=== PATIENT | female | born 1990 | race Caucasian/White ===

== ENCOUNTER → 2017-06-30 16:12 | Observation (INO) ==
[2017-06-30 14:20] LABS: Bilirubin,Urine Negative (Negative); Blood,Urine Trace (Negative); Clarity,Urine Cloudy (Clear); Color,Urine Yellow (Yellow); Glucose,Urine (UA) Normal (Normal); Ketones,Urine Trace mg/dL (Negative); Leukocyte Esterase,Urine Negative (Negative); Nitrite,Urine Negative (Negative); Protein,Urine Negative (Neg-Trace); Specific Gravity,Urine 1.025 (1.010-1.025); Urobilinogen,Urine Normal (Normal)
[2017-06-30 14:23] LABS: Bacteria,Urine Moderate per hpf (None-Few); Hyaline Casts,Urine None Seen per lpf (None-Few); Squamous Epithelial Cell,Urine Many per lpf (None-Few)
[2017-06-30 14:34] LABS: RBC,Urine 0-3 per hpf (0-3)
[2017-06-30 14:38] LABS: Amphetamine Screen,Urine Negative ng/mL (Cutoff=1000); Barbiturate Screen,Urine Negative ng/mL (Cutoff=200); Benzodiazepines Screen,Urine Negative ng/mL (Cutoff=200); Cannabinoid Screen,Urine Negative ng/mL (Cutoff = 50); Cocaine Screen,Urine Negative ng/mL (Cutoff= 300); Opiate Screen,Urine Negative ng/mL (Cutoff=300); Phencyclidine Screen,Urine Negative ng/mL (Cutoff=25)
--- NOTE | 2017-06-30 15:00 | OB/GYN Progress Note ---
Date of Encounter: 06/30/17 Time of Encounter: 14:57 - Assessment and Plan (1) 22 weeks gestation of Current Visit: Yes Status: Acute The patient receives care with Dr. Ramos (2) Pelvic pressure in Current Visit: Yes Status: Acute No evidence of labor. No contractions on monitoring. Presenting part high. Urinalysis not flagged for culture. Pelvic rest until symptoms resolve (3) Acute vaginitis Current Visit: Yes Status: Acute Vaginosis panel obtained and treatment will be indicated as per results. Patient is to continue her care as scheduled. Subjective - Subjective Principal diagnosis: 22 weeks Interval history: The patient is a 26-year-old at 22 weeks estimated gestational age with an EDC of 11/03/17 who presents to labor and delivery with complaints of pelvic pressure and cramps since yesterday with some mucousy discharge and onset of dysuria this morning. She reports she saw blood spots within the discharge first thing this morning but that has resolved. She reports an active fetus. She denies any loss of fluid. She reports intercourse 2 days ago. She has no history of delivery and she has no complications with this . Antepartum ROS: new complaints, movement normal, other (Cramping, pelvic pressure with dysuria and vaginal discharge) Objective - Vital Signs Vital Signs: Intake and Output 06/29/17 06/30/17 06/30/17 23:59 07:59 15:59 Other: Weight 78.8 kg Patient Weight 06/30/17 23:59 Weight 78.8 kg - Exam FHR: auscultation normal FHR comments: 150s Auscultation: bilateral: normal Abdomen: Present: normal appearance, soft, gravid. Absent: distention, tenderness Cervical dilation: Visualized to be closed and thick station: High Comments: There is a small amount of mucousy discharge without any blood seen. Vaginosis panel obtained. No erythema or lesions noted within the vaginal vault or on the cervix - Labs Labs: Abnormal lab results Urine Clarity Cloudy (Clear) A 06/30/17 13:54 Urine Ketones Trace mg/dL (Negative) H 06/30/17 13:54 Urine Blood Trace (Negative) H 06/30/17 13:54 Urine Microscopic WBC 3-5 per hpf (0-3) H 06/30/17 13:54 Ur Squamous Epith Cells Many per lpf (None-Few) H 06/30/17 13:54 Urine Bacteria Moderate per hpf (None-Few) H 06/30/17 13:54 - Allied health notes Allied health notes reviewed: nursing
[2017-06-30 15:54] LABS: Candida DNA Not Detected (Not Detect); Gardnerella DNA Not Detected (Not Detect); Trichomonas DNA Not Detected (Not Detect)
== END | disposition home or self-care (01) ==
LOC: 1NENULAB
PROVIDERS: ADMIT Obstetrics & Gynecology; ATTEND Obstetrics & Gynecology

== ENCOUNTER 2017-07-26 14:13 | Observation (INO) ==
--- NOTE | 2017-07-26 12:52 | OB/GYN Progress Note ---
Date of Encounter: 07/26/17 Time of Encounter: 12:48 - Assessment and Plan (1) 25 weeks gestation of Current Visit: Yes Status: Acute (2) with flank pain, antepartum Current Visit: Yes Status: Acute Patient presents to L&D for right flank pain, pain with urination and a burning feeling in her vaginal. Was seen in the office on 07/23/17 for similar symptoms and was treated with keflex. Urine culture has resulted showing no growth. UA- Trace leukocyte esterase and moderate bacteria Retroperitoneal ultrasound- Mild distension of each renal collecting system believed related to the patient's late mid term . Otherwise normal ultrasound of the kidneys and urinary bladder. No evidence of internal kidney stone. UDS-Negative Monitoring appropriate for gestational age Reviewed US and labs with Dr. Jackson. Discharge home, continue keflex. Discussed with patient need to continue current antibiotic, s/s of pyelo and when to return to triage. Pt verbalizes understanding. Subjective - Subjective Interval history: Patient is a 26 year old female at 25w5d presents to L&D for pain with urination and vaginal burning. She states that she was seen in the office for this and was given keflex. She states that the symptoms have not improved and is now having flank pain on the right. Patient denies any loss of fluid or vaginal bleed but states she has had some yellowish vaginal discharge when she wipes. Patient denies contractions. reports good movement. Denies complications with this . Antepartum ROS: new complaints (Pain with urination and vaginal burning. ), movement normal, no loss of fluid, no vaginal bleeding, no contractions Objective - Vital Signs Vital Signs: Intake and Output 07/25/17 07/26/17 07/26/17 23:59 07:59 15:59 Other: Weight 81 kg Patient Weight 07/26/17 23:59 Weight 81 kg - Exam FHR: category 1 Auscultation: bilateral: normal Abdomen: Present: normal appearance, soft, gravid
[2017-07-26 13:10] VITALS: BP 112/71
[2017-07-26 13:32] LABS: Bilirubin,Urine Negative (Negative); Blood,Urine Negative (Negative); Clarity,Urine Cloudy (Clear); Color,Urine Yellow (Yellow); Glucose,Urine (UA) Normal (Normal); Ketones,Urine Negative (Negative); Leukocyte Esterase,Urine Trace (Negative); Nitrite,Urine Negative (Negative); PH,Urine 6.5 pH Units (5.0-8.0); Protein,Urine Negative (Neg-Trace); Specific Gravity,Urine 1.011 (1.010-1.025); Urobilinogen,Urine Normal (Normal)
[2017-07-26 13:34] LABS: Bacteria,Urine Moderate per hpf (None-Few); Hyaline Casts,Urine None Seen per lpf (None-Few); Squamous Epithelial Cell,Urine Many per lpf (None-Few)
[2017-07-26 13:38] LABS: Amphetamine Screen,Urine Negative ng/mL (Cutoff=1000); Barbiturate Screen,Urine Negative ng/mL (Cutoff=200); Benzodiazepines Screen,Urine Negative ng/mL (Cutoff=200); Cannabinoid Screen,Urine Negative ng/mL (Cutoff = 50); Cocaine Screen,Urine Negative ng/mL (Cutoff= 300); Opiate Screen,Urine Negative ng/mL (Cutoff=300); Phencyclidine Screen,Urine Negative ng/mL (Cutoff=25)
[2017-07-26 13:44] LABS: RBC,Urine 0-3 per hpf (0-3)
== END 2017-07-26 16:58 | disposition home or self-care (01) ==
LOC: 1NENULAB
PROVIDERS: ADMIT Obstetrics & Gynecology; ATTEND Obstetrics & Gynecology

== ENCOUNTER 2017-10-30 03:30 | Inpatient (IN) ==
--- NOTE | 2017-10-30 08:40 | OB/GYN History & Physical ---
Date of Encounter: 10/30/17 Time of Encounter: 08:30 Assessment and Plan (1) 39 weeks gestation of Current visit: Yes Status: Acute Patient receives appropriate care with Dr. Ramos Admitted for induction of labor Cytotec by mouth for induction/[place] balloon placement Epidural if requested Anticipate vaginal delivery (2) NST (non-stress test) reactive on surveillance Current visit: Yes Status: Acute Baseline 135bpm moderate variability Category I Contractions: Irritability Continue to monitor FHT (3) Small for gestational age fetus affecting mother, antepartum Current visit: Yes Status: Acute Qualifiers: Qualified Code(s): O36.5990 - Maternal care for other known or suspected poor growth, unspecified trimester, not applicable or unspecified History of Present Illness Chief complaint: Induction HPI: Ms. Malcolm is a 26 year old female 002 at 39 weeks +3 days who presents to labor and delivery for induction of labor. Patient follows with Dr. Ramos for care. Reports active movement. Denies leakage of fluid, feeling contractions, or vaginal bleeding. was complicated by small for gestational age on third trimester, Cynthia albicans infection, decreased movements and third trimester. Patient was last seen outpatient on , and scheduled for induction by Dr. Ramos on 10/25/17 for today. Patient denies headaches, vision disturbances, fevers/chills/nausea/vomiting/diarrhea. Denies chest pain, shortness of breath, dysuria. Blood type: O+ GBS: Negative Hep B: Nonreactive HIV Ig: Nonreactive T. Pallidum: Negative Rubella IgG: Positive Varicella IgG: Positive Past Med Surg Social Fam HX - Past Medical History Medical history: other Psychiatric history: anxiety, depression - Past Surgical History Surgical History: no surgical history - Social History Smoking Status: Current every day smoker Smokeless Tobacco Status: No Alcohol use: none Drug use: none - Family History Mother Living Status: Still Living Hx Family Cardiac Disorders: Yes (HYPERTENSION) Hx Family Respiratory Disorders: No Hx Family Cancer: No Hx Family GI Disorders: No Hx Family Endocrine Disorder: No Hx Family Neuromuscular Disorders: No Hx Family Neurologic Disorders: No Hx Family HEENT Disorders: No Hx Family Autoimmune Disorders: No Obstetrical History - Pregnancies : 3 Para: 2 Medications and Allergies Vit Calc,Iron,Folic [ Vitamins] 1 tab PO DAILY 06/30/17 [ History] Cephalexin [Keflex] 500 mg PO BID 07/26/17 [History] Promethazine [Phenergan] 12.5 mg PO Q6HR 07/26/17 [History] Oseltamivir [Tamiflu] 75 mg PO DAILY #10 capsule 10/10/17 [Rx] 3 Allergy/AdvReac Type Severity Reaction Status Date / Time No Known Allergies Allergy Verified 10/10/17 09:34 Review of System OB - Constitutional Constitutional ROS IM: as per HPI - Cardiovascular Cardiovascular: as per HPI - Respiratory Respiratory: as per HPI - Gastrointestinal Gastrointestinal: as per HPI - Genitourinary Genitourinary: as per HPI Exam - Constitutional Constitutional: well developed, well nourished, no acute distress, average body habitus - HEENT HEENT: Normocephaly, Mucus Membranes Moist - Neck Neck exam: full ROM - Lungs Respiratory exam: CTAB - Cardiovascular Cardiovascular exam: RRR, +S1, +S2 - Abdomen Abdomen: Present: bowel sounds normal - Extremities Extremities exam: warm, radial pulses palpable and symmetrical Deep Tendon Reflex Grade: 2+ Normal Results All other labs normal.
[2017-10-30] MEDS ORDERED: Famotidine 20 MG/2 ML VIAL IVP PRN (09:26)
[2017-10-30] MEDS ORDERED: Naloxone 0.4 MG/ML INJ IVP PRN ×2 (09:26→14:29)
[2017-10-30] MEDS ORDERED: Ondansetron 4 MG/2 ML VIAL IVP PRN ×2 (09:26→14:29)
[2017-10-30] MEDS ORDERED: Metoclopramide 10 MG/2 ML VIAL IVP PRN (09:26)
[2017-10-30] MEDS ORDERED: miSOPROStol 25 MCG TABLET PO ONE (10:03)
--- NOTE | 2017-10-30 10:12 | Anesthesia Evaluation PreOp ---
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[employer] History: Other (chronic migraines) Other Medical History: Denies Any Significant HX, GERD Anesthesia History: No Prior Anesthetic Complications, Past Anesthesia ([place] teeth, epidural x 2) : Yes Alcohol Use: none Drug use: none Medications and Allergies Vit Calc,Iron,Folic [ Vitamins] 1 tab PO DAILY 06/30/17 [ History] 3 Allergy/AdvReac Type Severity Reaction Status Date / Time No Known Allergies Allergy Verified 10/10/17 09:34 - Meds/Allergy Pre-op Review Medications Reviewed: Yes Allergies Reviewed: No Beta Blockers on Current Med List: No Anesthesia Exam BP 116/74 P 102 R 16 T 97.5 Height: 5'2" Weight: 84.3kg NPO (# of Hours): 4hrs Pain Scale: 0 Pain Scale Used: Numeric (1 - 10) - HEENT Pupil (Motor): Pupils equal Mallampati: II Teeth: Normal Oral Opening: Greater than 3 - MANAGER [employer] LOC: Oriented MANAGER [employer] Motor: Normal RUE, Normal LUE, Normal RLE, Normal LLE, Normal Face [employer]NAGER [employer] Sensory: Normal: RUE, LUE, RLE, LLE, Face - Cardiac Rhythm: Regular Murmur: None JVD: No Carotid Bruit: No - Pulmonary Breath Sounds: bilateral Clear Respiratory Effort: Symmetrical Anesthesia Assess/Plan ASA Score: 2 Modified Citlaly Scale for Level of Consciousness: Cooperative, oriented, and tranquil Anesthetic Plan: Regional Autologous Blood: No Monitoring Plan: Standard Monitors Recovery Plan: Other
[2017-10-30 10:21] LABS: Basophils % 0.2 %; Eosinophils # 0.2 K/mcL (0.0-0.6); Eosinophils % 0.9 %; Hematocrit 34.1 % (35.3-44.9); Hemoglobin 11.2 g/dL (11.5-15.4); Immature Granulocytes % 0.5 % (0-4); Lymphocytes % 17.6 %; Mean Corpuscular HGB Conc 32.8 g/dL (31.6-35.5); Mean Corpuscular Hemoglobin 26.9 pg (28.0-33.3); Mean Corpuscular Volume 81.8 fL (83.0-100.0); Mean Platelet Volume 10.2 fL (9.4-12.4); Monocytes # 1.1 K/mcL (0.0-1.3); Monocytes % 6.3 %; Neutrophils # 12.6 K/mcL (1.6-8.9); Platelet Count 325 K/mcL (140-400); Red Blood Count 4.17 M/mcL (3.82-4.97); Red Cell Distribution Width 14.5 % (11.5-14.5); Segmented Neutrophils % 74.5 %
[2017-10-30] MEDS ORDERED: Terbutaline 1 MG/ML VIAL SQ ONE ×2 (10:52→10:53)
[2017-10-30 11:08] LABS: Amphetamine Screen,Urine Negative ng/mL (Cutoff=1000); Barbiturate Screen,Urine Negative ng/mL (Cutoff=200); Benzodiazepines Screen,Urine Negative ng/mL (Cutoff=200); Cannabinoid Screen,Urine Negative ng/mL (Cutoff = 50); Cocaine Screen,Urine Negative ng/mL (Cutoff= 300); Opiate Screen,Urine Negative ng/mL (Cutoff=300); Phencyclidine Screen,Urine Negative ng/mL (Cutoff=25)
--- NOTE | 2017-10-30 13:00 | OB Labor Progress Note ---
Date of Encounter: 10/30/17 Time of Encounter: 10:45 Labor Progress Note - Subjective Subjective: CNM called to room for prolonged deceleration. Position changed many times over 10 minutes with inconsistent recovery of HR. - Cervix Cervix: Rapid change from 1-4 - Interventions Interventions: Terbutaline administered AROM FSE placed continue position changes - Plan Plan: Continue to closely monitor tolerance to labor. Frequent position changes Continue expectant management Anticipate vaginal delivery Dr. Yip aware of POC and agrees
[2017-10-30] MEDS ORDERED: *HR* Nalbuphine 20 MG/ML AMPUL IVP PRN (13:09)
[2017-10-30] MEDS: Ringers Solution, Lactated 1,000 ML IVC SCH ×2 (13:25→17:33)
[2017-10-30] MEDS ORDERED: *HR* FentaNYL (PF) 100 MCG/2 ML VIAL EP ONE (14:29)
[2017-10-30] MEDS ORDERED: EPHEDrine 50 MG/ML VIAL IVP PRN (14:29)
[2017-10-30] MEDS ORDERED: Bupivacaine-MPF 0.25% 10 ML VIAL EP ONE (14:29)
[2017-10-30] MEDS ORDERED: Epidural Premix (fent/bupiv) 110 ML EP SCH (14:30)
[2017-10-30] MEDS ORDERED: Epidural Premix (fent/bupiv) 110 ML EP ONE (14:32)
[2017-10-30] MEDS ORDERED: *HR* FentaNYL (PF) 100 MCG/2 ML VIAL ONE (14:34)
[2017-10-30] MEDS ORDERED: Bupivacaine-MPF 0.25% 10 ML VIAL ONE (14:34)
--- NOTE | 2017-10-30 16:25 | Anesthesia Procedures ---
Date of Encounter: 10/30/17 Time of Encounter: 15:25 Procedures: Anesthesia - Epidural/Spinal Patient ID/Chart reviewed: Yes Patient examined: Yes OB Eval: Gestational age: 39 OB Eval: : 3 OB Eval: Hx Para: 2 OB Eval: Dilated at (cm): 4 OB Eval: Contractions: Non-stressed pattern Consent Obtained: Yes Supplemental Oxygen: None/Room Air Site Prep: Aseptic Technique, Sterile prep and drape, Povidone-Iodine 1% Patient position: upright Local Anesthetic: Lidocaine 1% Amount of Local Anesthetic used: 3 Touhy Needle Gauge: 18 Touhy Needle Depth (cm): 6 Catheter Depth at Skin (cm): 15 Test Dose (1.5% Lido + Epi): Volume given (mls): 3 Test Dose Result: Negative Loading Dose: Fentanyl (mcg): 100 Loading Dose Administered: Thru Catheter Infusion Med: 0.125% Bupivacaine w/ 2 mcg/ml Fentanyl Infusion Rate (mls/hr): [address]: Tegaderm, Tape Interspace Used: L3-L4 Loss of Resistance (CARLOS): Yes Blood: No CSF: No Paresthesia: No Procedure: CAMRYN placed 1st pass in upright position without any immediate noted complications. VSS Vitals + FHT's: 1525 BP 109/60 P 90 R 18 1600 BP 98/51 R 16 P 98 FHT 120s
[2017-10-30] MEDS ORDERED: Oxytocin 20 units/ LR 1000 mL 20 UNIT/1,000 ML BAG IVC SCH ×2 (16:30→20:58)
[2017-10-30] MEDS ORDERED: Acetaminophen 325 MG TABLET PO ONE (18:16)
--- NOTE | 2017-10-30 20:43 | OB/GYN Procedure Note ---
Delivery - Delivery Date: 10/30/17 Provider: Chey Wade Intrapartum events: none Delivery induction: dominguez, misoprostol Delivery augmentation: rupture of membranes, pitocin Delivery monitor: external FHT, external uterine Anesthesia: epidural Estimated Blood Loss: 150 - (s) A Infant Delivery Date: 10/30/17 Delivery Time: 20:14 Presentation: vertex Position: TAY Route of delivery: Gender: Female Viability: Viable Pounds: 6 Ounces: 0 Weight Gram: 2.71 kg at 1 minute: 8 at 5 mins: 9 Shoulder Dystocia: not encountered Specimens collected: cord blood Placenta: spontaneous Cord: 3 umbilical vessels - Repair Episiotomy: none Laceration Description: None - Complications Delivery complications: none Delivery comments: This is a 26-year-old G3 now P3 who was admitted for induction of labor. She progressed with Cytotec and Dominguez bulb induction and AROM and Pitocin augmentation to the second stage of labor. She pushed for about 15 minutes. Under maternal effort, she delivered a viable female , TAY over an intact perineum. The mouth and nares were bulb suctioned on the perineum. No nuchal cord was identified and no shoulder dystocia was encountered. The was placed on the maternal abdomen after delivery and cord was allowed to stop pulsating. Cord was clamped by advertising campaign manager and cut by FOB. scores were 8 at 1 minute and 9 at 5 minutes. The placenta delivered spontaneously, intact, with three-vessel cord. Inspection revealed no perineal, sidewall, or cervical lacerations. The uterus was firm with no active bleeding. EBL was 150mL. Placenta and umbilical artery blood gas were not sent. There were no complications during the procedure. Mom and baby [id number] following delivery. Dr. Yip was present for the entire delivery. - Disposition Mom disposition: stable in LDR [place] disposition: stable in LDR - Comments Comments: I was present for the delivery and available throughout the labor. Martha Yip DO
[2017-10-30] MEDS ORDERED: Acetaminophen 325 MG TABLET PO PRN (20:58)
[2017-10-30] MEDS ORDERED: Benzocaine/Menthol 56 GM AEROSOL SPRAY TP PRN (20:58)
[2017-10-31] MEDS: Ibuprofen 600 MG TABLET PO PRN ×3 (00:45→20:27)
[2017-10-31] MEDS ORDERED: Prenatal Vit/FA 1 EACH TABLET PO SCH (09:00)
--- NOTE | 2017-10-31 10:50 | OB/GYN Progress Note ---
Date of Encounter: 10/31/17 Time of Encounter: 10:49 - Assessment and Plan (1) Vaginal delivery Current Visit: Yes Status: Acute Stable PPD #1 Continue courage management Anticipate discharge tomorrow Subjective - Subjective Interval history: Patient states pain all managed on oral pain medication, tolerating by mouth diet, breast-feeding, desires discharge tomorrow. Patient reports: appetite normal, voiding normally, pain well controlled, ambulating normally : doing well, nursing well Objective - Latest Vital Signs Latest vital signs: Vital Signs Temp Pulse Resp BP Pulse Ox 10/31/17 08:20 98.1 F 73 16 98/63 98 10/31/17 00:35 98.2 F 88 16 107/68 98 10/30/17 23:30 98.0 F 91 16 118/71 98 10/30/17 22:30 97.9 F 73 14 107/77 99 Intake and Output 10/30/17 10/31/17 10/31/17 23:59 07:59 15:59 Intake Total 1000 / 1000 Output Total 750 / 750 Balance 250 / 250 Intake: IV Fluids 1000 / 1000 Lactated Ringers 1,000 ML @ 125 1000 / 1000 mls/hr IVC .Q8H KASIA Rx#: [id number] Output: Urine 450 / 450 Catheter 300 / 300 Other: Weight 84.5 kg - Exam Lungs: bilateral: normal Chest: Normal S1, Normal S2 Extremities: Present: normal Abdomen: Present: normal appearance, soft Uterus: Present: firm Uterus Position: At Umbilicus - Labs Labs: Laboratory Results - last 24 hr 10/30/17 10:03 Urine Opiates Screen Negative Ur Barbiturates Screen Negative Ur Phencyclidine Scrn Negative Ur Amphetamines Screen Negative U Benzodiazepines Scrn Negative Urine Cocaine Screen Negative U Marijuana (THC) Screen Negative
[2017-10-31] MEDS ORDERED: Lanolin 7 G OINT...G. TP PRN (17:18)
[2017-11-01] MEDS: Ibuprofen 600 MG TABLET PO PRN ×2 (03:32→09:02)
--- NOTE | 2017-11-01 09:54 | Discharge Summary ---
Date of Encounter: 11/01/17 Time of Encounter: 09:51 - Discharge Diagnosis (1) Vaginal delivery Priority: Primary Status: Acute Comments: Voiding, +BM, and ambulatory with no complaints. Breast feeding; request prescription for pump (2) Flu-like symptoms Priority: Secondary Status: Acute Comments: URI symptoms x2 days including cough; sick contact with positive rapid flu Rapid flu pending; will give single dose of tamiflu and discharge on full course Instructed in precautions towards including contacts wearing masks in 's presence - Discharge Medications Prescriptions: Breast Pump [BREAST PUMP] 1 each .ROUTE AD #1 each Ferrous Sulfate 325 mg PO DAILY #30 tablet Oseltamivir [Tamiflu] 75 mg PO BID #9 capsule Home Medications: Vit Calc,Iron,Folic [ Vitamins] 1 tab PO DAILY 06/30/17 [ History] Acetaminophen [Tylenol] 650 mg PO Q6HR PRN tablet 11/01/17 [Rx] Breast Pump [BREAST PUMP] 1 each .ROUTE AD #1 each 11/01/17 [Rx] Docusate [Colace] 100 mg PO BID capsule 11/01/17 [Rx] Ferrous Sulfate 325 mg PO DAILY #30 tablet 11/01/17 [Rx] Ibuprofen [Motrin] 600 mg PO Q6HR PRN tablet 11/01/17 [Rx] Oseltamivir [Tamiflu] 75 mg PO BID #9 capsule 11/01/17 [Rx] Allergies/Adverse Reactions: 3 Allergy/AdvReac Type Severity Reaction Status Date / Time No Known Allergies Allergy Verified 10/10/17 09:34 Data Procedures and tests throughout hospitalization: Laboratory Tests 10/30/17 10/30/17 10:03 10:03 WBC 16.9 H RBC 4.17 Hgb 11.2 L Hct 34.1 L MCV 81.8 L MCH 26.9 L MCHC 32.8 RDW 14.5 Plt Count 325 MPV 10.2 Immature Gran % 0.5 Seg Neutrophils % 74.5 Lymphocytes % 17.6 Monocytes % 6.3 Eosinophils % 0.9 Basophils % 0.2 Neutrophils # 12.6 H Lymphocytes # 3.0 Monocytes # 1.1 Eosinophils # 0.2 Basophils # 0.0 Urine Opiates Screen Negative Ur Barbiturates Screen Negative Ur Phencyclidine Scrn Negative Ur Amphetamines Screen Negative U Benzodiazepines Scrn Negative Urine Cocaine Screen Negative U Marijuana (THC) Screen Negative Date of admission: 10/30/17 08:04 Primary care physician: Kari Latham CNP Consults: 10/30/17 20:58 Consult to Cafeteria Or Lunchroom Checker [CONS] Routine Comment: Vaginal delivery, consult needed Discharging clinician: Chano Gilbert Anticipated date of discharge: 11/01/17 - Patient Status Disposition: Home, Self-Care Condition: Good Functional capacity at discharge: independent ambulation Overall status at discharge: patient is back to baseline - Discharge Instructions Follow Up With: Kari Latham CNP [Primary Care Provider] - Malick Ramos DO [Partnered Physician] - Additional Instructions: Perineal Care: Always wipe front to back Change your pad frequently Use your aurelia bottle with warm water and spray front to back Do not douche, use tampons, have sexual intercourse or put anything in your vagina for 4-6 weeks after delivery Bleeding: Vaginal bleeding can last up to 6 weeks Your menstrual period may return as early as 6 weeks after you are discharged from the hospital Trevor/Stitches Care: Vaginal Delivery Vaginal stitches will dissolve within 4-6 weeks Follow perineal care instructions Care Stitches will dissolve on their own If you have trevor, they will need to be removed in the doctors office within 5-7 days. You may shower with stitches or trevor Drip plan or soapy water over the incision to clean. Pat dry gently with a clean towel. Make sure you completely dry under the skin folds DO NOT USE powders, lotions, rubbing alcohol or hydrogen peroxide on or around your incision. This will slow your wound healing It is normal to have soreness, burning, tingling, itchiness and/or numbness as your incision heals Activity: Rest frequently Do not lift anything heavier than a gallon of milk, up to 10-15 pounds No driving for 1-2 weeks for Vaginal delivery No driving for 2-4 weeks for delivery Take stairs slowly, one at a time Gradually increase your daily activity until you are back to your normal routine Do not exercise until you have had your follow-up appointment Bathing: Take a shower daily Do not take a tub bath for the first 4 weeks Diet: Drink plenty of water and fruit juices Eat a well-balanced diet with foods high in fiber such as fruits and vegetables Depression: Your hormones have a major impact on your feelings and emotions. Hormone imbalance may cause changes in your mood, creating unfamiliar thoughts and actions. Support is available to help you understand and cope with these feelings and mood changes. If you answer yes to any of the following questions, please call your health care provider: Are you having trouble sleeping? Are you feeling isolated? Have you lost your appetite? Are you having thoughts of hurting yourself or others? WARNING SIGNS: Heavy bleeding from the vagina (blood is bright red and soaks a sanitary pad in an hour or less.) Passing a blood clot larger than your fist Discharge from the vagina that has a bad odor Temperature over 100.4 F, or if you feel cold and have chills An episiotomy site that is warm, swollen or oozing. Use a mirror if needed Urination (pee) that is painful, very red and swollen or leaking fluid An incision that is painful, very red and swollen and leaking fluid An incision that has come open Breasts that are painful or full with flu like symptoms Redness, warmth or swelling in the calf of your leg Trouble breathing, dizziness, visual disturbance or faintness *Notify your health care provider immediately or go to the nearest Emergency Room if you experience any of the above signs.* To contact the nurses station 24 hours a day, For non-urgent, routine questions, please call the office at - Diet and Activity Activity: resume usual activities as tolerated Diet: regular diet Hospital Course Reason for admission: induction of labor Delivery: Episiotomy: none Laceration: none Other procedures: none complications: none Discharge diagnosis: IUP at term delivered [place] baby: female Hospital course: Admitted 10/30/17 for induction of labor. Spontaneous vaginal deliver of single viable female infant. Date: 10/30/17 Provider: Chey Wade Intrapartum events: none Delivery induction: dominguez, misoprostol Delivery augmentation: rupture of membranes, pitocin Delivery monitor: external FHT, external uterine Anesthesia: epidural Estimated Blood Loss: 150 - (s) Infant A Delivery Date: 10/30/17 Delivery Time: 20:14 Presentation: vertex Position: TAY Route of delivery: Gender: Female Viability: Viable Pounds: 6 Ounces: 0 Weight Gram: 2.71 kg at 1 minute: 8 at 5 mins: 9 Shoulder Dystocia: not encountered Specimens collected: cord blood Placenta: spontaneous Cord: 3 umbilical vessels - Repair Episiotomy: none Laceration Description: None - Complications Delivery complications: none Per nursing, c/o cough, myalgias, and night chills/sweats onset 2 days ago. Positive sick contact (daughter) who had positive rapid flu test. Patient tested for flu which is pending at this time. Ordered and given single dose of Tamiflu prior to discharge and sent home with remainder of course. Patient and family advised on precautionary measures vs denise influenza including routine use of face mask by contacts as well as hand hygiene. Return precautions for infant discussed. Patient requests prescription for breast pump. Also, per request, ordered and administered Depo-provera prior to discharge. No other complaints at time of discharge. Time Attestation: Total time spent providing and/or coordinating discharge services: Exam - Constitutional Vitals: Temp Pulse Resp BP Pulse Ox 98.4 F 100 16 113/74 96 10/31/17 21:25 10/31/17 21:25 10/31/17 21:25 10/31/17 21:25 10/31/17 21:25 General appearance IM: A&O X 3, no acute distress - Respiratory Respiratory exam: Present: CTAB - Cardiovascular Cardiovascular exam IM: Present: RRR, +S1, +S2 - GI/Abdominal GI/Abdominal exam IM: soft - Uterus Position: Midline (below umbilicus) - Extremities Exam Extremities exam IM: Absent: pedal edema - Neurological Exam Neurological exam: reflexes normal
[2017-11-01 10:19] VITALS: BP 116/74
== END 2017-11-01 11:30 | disposition home or self-care (01) | DRG 774 ==
LOC: 1NENULAB 08:04 → 1NENUOBS 22:52
PROVIDERS: ADMIT Registered Nurse; ATTEND Registered Nurse

== ENCOUNTER 2018-10-10 17:41 | Inpatient (IN) ==
[2018-10-10 18:13] LABS: Bilirubin,Urine Negative (Negative); Blood,Urine Negative (Negative); Clarity,Urine Clear (Clear); Color,Urine Yellow (Yellow); Glucose,Urine (UA) Normal (Normal); Ketones,Urine Negative (Negative); Leukocyte Esterase,Urine Negative (Negative); Nitrite,Urine Negative (Negative); Protein,Urine Negative (Neg-Trace); Specific Gravity,Urine 1.014 (1.010-1.025); Urobilinogen,Urine Normal (Normal)
[2018-10-10 18:21] LABS: Amphetamine Screen,Urine Negative ng/mL (Cutoff=1000); Barbiturate Screen,Urine Negative ng/mL (Cutoff=200); Benzodiazepines Screen,Urine Negative ng/mL (Cutoff=200); Cannabinoid Screen,Urine Negative ng/mL (Cutoff = 50); Cocaine Screen,Urine Negative ng/mL (Cutoff= 300); Opiate Screen,Urine Negative ng/mL (Cutoff=300); Phencyclidine Screen,Urine Negative ng/mL (Cutoff=25)
--- NOTE | 2018-10-10 18:42 | Emergency Department Note ---
Disposition Clinical Impression: Suicidal ideation Disposition: Admitted As Inpatient Condition: Good Referrals: Larisa Hunt DO [Partnered Physician] - Forms: ED Satisfaction Letter Time of Disposition: 00:04 Psych HPI - General Chief Complaint: ED Psychiatric Symptoms Stated Complaint: SI Time Seen by Provider: 10/10/18 18:36 Source: patient Nursing Notes Reviewed: Yes Vital Signs Reviewed: Yes - History of Present Illness HPI Narrative: 27-year-old female smoker c/o suicidal ideation. She states that she has had this in the past, but however it had worsened acutely this week. She mentions she is not sure why and worsen. She does describe a plan where she would save up her sleeping pills and take them all at once. She does mention that she is on Abilify, Lamictal, Effexor, Klonopin, prescribed by Dr. Hunt. She does mention that she started to have an anxiety attack characterized by chest pain and shortness of breath while waiting the exam room. Pt mentions she's been having chest pain for weeks and has seen her maintenance mechanic for this. Otherwise she denies any recent illness. Pt mentions she delivered her third daughter approx 1 year ago (ages 10,8,1). Pt accompanied by her mother and sister. She denies any homicidal ideations auditory or visual hallucinations, alcohol or drug use. - Related Data Home Medications Medication Instructions Recorded Confirmed SUMAtriptan Succinate [Imitrex] 100 mg PO Q2H PRN MDD 200MG/24HOUR 07/30/18 10/06/18 Venlafaxine HCl [Venlafaxine HCl 225 mg PO DAILY 07/30/18 10/06/18 ER] Zolpidem [Ambien] 5 mg PO HS 07/30/18 10/06/18 ARIPiprazole [Abilify] 2 mg PO HS 09/26/18 10/06/18 clonazePAM [Klonopin] 0.5 mg PO BID 09/26/18 10/06/18 Venlafaxine [Effexor] 25 mg PO BID 10/06/18 10/06/18 Previous Rx's Medication Instructions Recorded Ondansetron ODT [Zofran ODT] 4 mg SL Q4HR PRN #15 tab.rapdis 09/26/18 Allergies Allergy/AdvReac Type Severity Reaction Status Date / Time No Known Allergies Allergy Verified 07/30/18 12:04 All systems ED: reviewed and negative except as stated. Review of Systems: As Per HPI Constitutional: Denies: fever, chills Eyes: Denies: eye pain ENT ED: Denies: ear pain Cardiovascular: Denies: chest pain Respiratory: Reports: as per HPI Gastrointestinal: Denies: abdominal pain, nausea, vomiting Genitourinary: Denies: dysuria Musculoskeletal: Denies: back pain Integumentary: Denies: rash Neurological: Denies: headache Psychiatric: Reports: anxiety, depression, suicidal thoughts. Denies: homicidal thoughts, auditory hallucinations, visual hallucinations Endocrine: Denies: fatigue Hematological/Lymphatic: Denies: easy bleeding Allergic/Immunologic: Denies: facial swelling Past Medical History - Past Medical History Medical history: Reports: migraine Surgical history: Reports: no surgical history Psychiatric history: Reports: anxiety, depression GREY PERCHER history: Reports: no GREY PERCHER history - Social History Smoking Status: Current every day smoker Smokeless Tobacco Status: No Alcohol use: Reports: none Drug use: Reports: none Physical Exam - General Limitations: no limitations General appearance: alert, anxious - Head Head exam: atraumatic, normocephalic - Eye Eye exam: Present: normal appearance, EOMI. Absent: conjunctival injection - ENT ENT exam: mucous membranes moist - Neck Neck exam: Present: full ROM - Chest Chest inspection: Present: symmetric chest wall rise - Respiratory Respiratory exam: Present: normal lung sounds bilaterally. Absent: respiratory distress, wheezes, stridor, accessory muscle use - Cardiovascular Cardiovascular exam: Present: regular rate, normal rhythm - Abdominal Exam Abdominal exam: Present: soft, Non-Tender - Extremities Exam Extremities exam: Present: full ROM - Back Exam Back exam: Present: full ROM - Neurological Exam Neurological exam: Present: alert - Psychiatric Psychiatric exam: Present: normal affect, depressed, anxious - Skin Skin exam: Present: warm, dry, intact, normal color. Absent: rash, cyanosis, diaphoresis Course Course Narrative: 27-year-old female with known history of depression and anxiety arrives to emergency Department via private vehicle accompanied by her adopted mother and twin sister. The patient mentions that she is here because she has some thoughts of hurting herself. She describes that she is okay being treated here although she hence that it was not diarrhea. She does voice thoughts of suicide, with a specific plan of overdosing on her sleeping pills. She does describe having thoughts in the past is not sure how long, but does describe that they have worsened acutely. In discussion, pt describes life stressors: illness/ dog, financial issues, stay at home mom, concern of 's thoughts on her mental health, friend with cancer. Pt famhx: mother has known h/o of psychiatric issues as young adult, sister has anxiety. She does feel that she's been wanting to get help. SI worsened today. She describes being followed by Dr. Hunt, who prescribes Abilify the mechanical Effexor and Klonopin. Additionally patient mentions that she is on heart medications and blood pressure medications, and shows me pictures of metoprolol for tachycardia and amlodipine bottles. She also mentions she is on a stomach medicine. Her vitals are within normal limits.On examination she appears anxious and depressed and tearful, but in no acute distress. No evidence of any disorganized thoughts, confusion, or saritha. She appears alert and oriented. Head atraumatic. Neck normal range of motion without stiffness. Chest was checks rise, lungs clear to auscultation with no wheezing stridor. Heart regular rate and rhythm. No abdominal tenderness. Extremities are grossly unremarkable on simple inspection. Back nontender. Patient moves all extremities no apparent focal neurological deficits. Skin warm dry and intact normal color. Patient describes anxiety attack in the waiting room waiting for room, with some chest pain and shortness of breath that she feels is consistent with her past anxiety attacks. I do feel she would benefit from a behavioral health evaluation. We will attempt to medically clear her. Workup initiated. At this point, feels that her chest pain is more likely related to her anxiety, and less concerning for ACS, PE, or infectious cause. However We will also order chest x-ray, EKG, and plan for reevaluation. - Reevaluation(s) Reevaluation #1: Patient was medically cleared and evaluated by behavioral health nurse Jane Andersen who had discussed patient with on-call psychiatrist Dr. Tamayo. They are recommending mention to [facility] for further evaluation and stabilization. Patient was discussed with attending Dr. Hernandez also states that patient agreed with workup and disposition. Time: 00:04 Vital Signs Temperature 98.7 F 10/10/18 17:43 Pulse Rate 98 10/10/18 17:43 Respiratory Rate 18 02/14/19 17:43 Blood Pressure 129/87 10/10/18 17:43 O2 Sat by Pulse Oximetry 99 10/10/18 17:43 Temperature 98.3 F 10/10/18 19:20 Pulse Rate 87 10/10/18 19:20 Respiratory Rate 15 10/10/18 19:20 Blood Pressure 114/72 10/10/18 19:20 O2 Sat by Pulse Oximetry 99 10/10/18 19:20 Oxygen Delivery Oxygen Delivery Room Air Psych - MDM Narrative Medical decision making narrative: Chest X-Ray 10/10/18 18:38 IMPRESSION: No acute process. D/ / Maurice Bates MD / Maurice Bates MD Interpreting Provider: Maurice Bates MD Laboratory Tests 10/10/18 10/10/18 10/10/18 17:50 17:50 17:50 WBC RBC Hgb Hct MCV MCH MCHC RDW Plt Count MPV Immature Gran % Seg Neutrophils % Lymphocytes % Monocytes % Eosinophils % Basophils % Neutrophils # Lymphocytes # Monocytes # Eosinophils # Basophils # Sodium Potassium Chloride Carbon Dioxide BUN Creatinine Est GFR ( Amer) Est GFR (Non-Af Amer) BUN/Creatinine Ratio Glucose Calculated Osmolality Calcium TSH Urine Color Yellow Urine Clarity Clear Urine pH 7.0 Ur Specific [place] 1.014 Urine Protein Negative Urine Glucose (UA) Normal Urine Ketones Negative Urine Blood Negative Urine Nitrite Negative Urine Bilirubin Negative Urine Urobilinogen Normal Ur Leukocyte Esterase Negative Ur Culture Indicated? NO Urine Test Negative Salicylates Urine Opiates Screen Negative Acetaminophen Ur Barbiturates Screen Negative Ur Phencyclidine Scrn Negative Ur Amphetamines Screen Negative U Benzodiazepines Scrn Negative Urine Cocaine Screen Negative U Marijuana (THC) Screen Negative Ur Drug Screen Interp See Below Ethyl Alcohol 10/10/18 10/10/18 18:17 18:17 WBC 12.0 H RBC 4.30 Hgb 12.6 Hct 37.6 MCV 87.4 MCH 29.3 MCHC 33.5 RDW 13.2 Plt Count 234 MPV 10.3 Immature Gran % 0.3 Seg Neutrophils % 62.1 Lymphocytes % 27.2 Monocytes % 6.1 Eosinophils % 4.3 Basophils % 0.0 Neutrophils # 7.4 Lymphocytes # 3.3 Monocytes # 0.7 Eosinophils # 0.5 Basophils # 0.0 Sodium 138 Potassium 3.6 Chloride 109 H Carbon Dioxide 25 BUN 12 Creatinine 0.84 Est GFR ( Amer) > 60 Est GFR (Non-Af Amer) > 60 BUN/Creatinine Ratio 14 Glucose 98 Calculated Osmolality 286 Calcium 9.1 TSH 2.954 Urine Color Urine Clarity Urine pH Ur Specific [place] Urine Protein Urine Glucose (UA) Urine Ketones Urine Blood Urine Nitrite Urine Bilirubin Urine Urobilinogen Ur Leukocyte Esterase Ur Culture Indicated? Urine Test Salicylates < 2.5 L Urine Opiates Screen Acetaminophen < 10 L Ur Barbiturates Screen Ur Phencyclidine Scrn Ur Amphetamines Screen U Benzodiazepines Scrn Urine Cocaine Screen U Marijuana (THC) Screen Ur Drug Screen Interp Ethyl Alcohol < 10 - Lab Data Result diagrams: 10/10/18 18:17 10/10/18 18:17 Lab Results 10/10/18 10/10/18 10/10/18 Range/Units 17:50 17:50 17:50 WBC (4.3-11.1) K/mcL RBC (3.82-4.97) M/mcL Hgb (11.5-15.4) g/dL Hct (35.3-44.9) % MCV (83.0-100.0) fL MCH (28.0-33.3) pg MCHC (31.6-35.5) g/dL RDW (11.5-14.5) % Plt Count (140-400) K/mcL MPV (9.4-12.4) fL Immature Gran % (0-4) % Seg Neutrophils % % Lymphocytes % % Monocytes % % Eosinophils % % Basophils % % Neutrophils # (1.6-8.9) K/mcL Lymphocytes # (0.6-4.6) K/mcL Monocytes # (0.0-1.3) K/mcL Eosinophils # (0.0-0.6) K/mcL Basophils # (0.0-0.2) K/mcL Sodium (136-145) mEq/L Potassium (3.5-5.1) mEq/L Chloride (98-107) mEq/L Carbon Dioxide (23-29) mEq/L BUN (6-20) mg/dL Creatinine (0.60-1.20) mg/dL Est GFR ( Amer) (> 60) Est GFR (Non-Af Amer) (> 60) BUN/Creatinine Ratio (6-26) Glucose (70-105) mg/dL Calculated Osmolality (280-300) Calcium (8.6-10.3) mg/dL TSH (0.340-5.600) mcIU/mL Urine Color Yellow (Yellow) Urine Clarity Clear (Clear) Urine pH 7.0 (5.0-8.0) pH Units Ur Specific [place] 1.014 (1.010-1.025) Urine Protein Negative (Neg-Trace) mg/dL Urine Glucose (UA) Normal (Normal) mg/dL Urine Ketones Negative (Negative) mg/dL Urine Blood Negative (Negative) Urine Nitrite Negative (Negative) Urine Bilirubin Negative (Negative) Urine Urobilinogen Normal (Normal) mg/dL Ur Leukocyte Esterase Negative (Negative) Ur Culture Indicated? NO (NO) Urine Test Negative (Negative) Salicylates (15.0-30.0) mg/dL Urine Opiates Screen Negative (Lcezaw=065) ng/mL Acetaminophen (10-20) mcg/mL Ur Barbiturates Screen Negative (Zhzmmk=539) ng/mL Ur Phencyclidine Scrn Negative (Cutoff=25) ng/mL Ur Amphetamines Screen Negative (Xiamsm=3904) ng/mL U Benzodiazepines Scrn Negative (Pwjhok=320) ng/mL Urine Cocaine Screen Negative (Cutoff= 300) ng/mL U Marijuana (THC) Screen Negative (Cutoff = 50) ng/mL Ur Drug Screen Interp See Below Ethyl Alcohol (Less than 10) mg/dL 10/10/18 10/10/18 Range/Units 18:17 18:17 WBC 12.0 H (4.3-11.1) K/mcL RBC 4.30 (3.82-4.97) M/mcL Hgb 12.6 (11.5-15.4) g/dL Hct 37.6 (35.3-44.9) % MCV 87.4 (83.0-100.0) fL MCH 29.3 (28.0-33.3) pg MCHC 33.5 (31.6-35.5) g/dL RDW 13.2 (11.5-14.5) % Plt Count 234 (140-400) K/mcL MPV 10.3 (9.4-12.4) fL Immature Gran % 0.3 (0-4) % Seg Neutrophils % 62.1 % Lymphocytes % 27.2 % Monocytes % 6.1 % Eosinophils % 4.3 % Basophils % 0.0 % Neutrophils # 7.4 (1.6-8.9) K/mcL Lymphocytes # 3.3 (0.6-4.6) K/mcL Monocytes # 0.7 (0.0-1.3) K/mcL Eosinophils # 0.5 (0.0-0.6) K/mcL Basophils # 0.0 (0.0-0.2) K/mcL Sodium 138 (136-145) mEq/L Potassium 3.6 (3.5-5.1) mEq/L Chloride 109 H (98-107) mEq/L Carbon Dioxide 25 (23-29) mEq/L BUN 12 (6-20) mg/dL Creatinine 0.84 (0.60-1.20) mg/dL Est GFR ( Amer) > 60 (> 60) Est GFR (Non-Af Amer) > 60 (> 60) BUN/Creatinine Ratio 14 (6-26) Glucose 98 (70-105) mg/dL Calculated Osmolality 286 (280-300) Calcium 9.1 (8.6-10.3) mg/dL TSH 2.954 (0.340-5.600) mcIU/mL Urine Color (Yellow) Urine Clarity (Clear) Urine pH (5.0-8.0) pH Units Ur Specific [place] (1.010-1.025) Urine Protein (Neg-Trace) mg/dL Urine Glucose (UA) (Normal) mg/dL Urine Ketones (Negative) mg/dL Urine Blood (Negative) Urine Nitrite (Negative) Urine Bilirubin (Negative) Urine Urobilinogen (Normal) mg/dL Ur Leukocyte Esterase (Negative) Ur Culture Indicated? (NO) Urine Test (Negative) Salicylates < 2.5 L (15.0-30.0) mg/dL Urine Opiates Screen (Akpvmv=813) ng/mL Acetaminophen < 10 L (10-20) mcg/mL Ur Barbiturates Screen (Jjxnmk=302) ng/mL Ur Phencyclidine Scrn (Cutoff=25) ng/mL Ur Amphetamines Screen (Czazus=9867) ng/mL U Benzodiazepines Scrn (Zpgsbk=617) ng/mL Urine Cocaine Screen (Cutoff= 300) ng/mL U Marijuana (THC) Screen (Cutoff = 50) ng/mL Ur Drug Screen Interp Ethyl Alcohol < 10 (Less than 10) mg/dL Psychiatric Medical Clearance - Medical Clearance Checklist Does the patient have a NEW psychiatric condition?: No Any abnormalities indicating possible medical illness?: No Any history of medical issues?: No Medical History: No Social History Section defined Any abnormal vital signs prior to transfer?: No Current Vitals: Last Vital Signs Temp 98.3 F 10/10/18 19:20 Pulse 87 10/10/18 19:20 Resp 15 10/10/18 19:20 BP 114/72 10/10/18 19:20 Pulse Ox 99 10/10/18 19:20 Is the patient intoxicated or cognitively impaired?: No Psychiatric Lab Panel: Drug Levels and Toxicity 10/10/18 10/10/18 17:50 18:17 Urine Opiates Screen Negative Acetaminophen < 10 L Ur Barbiturates Screen Negative Ur Phencyclidine Scrn Negative Ur Amphetamines Screen Negative U Benzodiazepines Scrn Negative Urine Cocaine Screen Negative U Marijuana (THC) Screen Negative Ethyl Alcohol < 10 Any abnormalities on the physical exam?: No Abnormal Labs: Abnormal lab results WBC 12.0 K/mcL (4.3-11.1) H 10/10/18 18:17 Chloride 109 mEq/L (98-107) H 10/10/18 18:17 Salicylates < 2.5 mg/dL (15.0-30.0) L 10/10/18 18:17 Acetaminophen < 10 mcg/mL (10-20) L 10/10/18 18:17 Does the patient require durable medical equiptment?: No Is the patient ambulatory?: No Is the patient a fall risk?: No Has the patient been medically cleared?: Yes Any acute medical condition require Tx prior to transfer?: No Statement of Medical Clearance: I have evaluated the patient, reviewed diagnostic information, and certify that the patient's medical condition is sufficiently stable that [facility] does not pose a significant risk of deterioration.
[2018-10-10 18:51] LABS: Eosinophils # 0.5 K/mcL (0.0-0.6); Eosinophils % 4.3 %; Hematocrit 37.6 % (35.3-44.9); Hemoglobin 12.6 g/dL (11.5-15.4); Immature Granulocytes % 0.3 % (0-4); Lymphocytes # 3.3 K/mcL (0.6-4.6); Lymphocytes % 27.2 %; Mean Corpuscular HGB Conc 33.5 g/dL (31.6-35.5); Mean Corpuscular Hemoglobin 29.3 pg (28.0-33.3); Mean Corpuscular Volume 87.4 fL (83.0-100.0); Mean Platelet Volume 10.3 fL (9.4-12.4); Monocytes # 0.7 K/mcL (0.0-1.3); Monocytes % 6.1 %; Neutrophils # 7.4 K/mcL (1.6-8.9); Platelet Count 234 K/mcL (140-400); Red Cell Distribution Width 13.2 % (11.5-14.5); Segmented Neutrophils % 62.1 %
[2018-10-10 19:04] LABS: Acetaminophen < 10 mcg/mL (10-20); BUN/Creatinine Ratio 14 (6-26); Blood Urea Nitrogen 12 mg/dL (6-20); Calcium 9.1 mg/dL (8.6-10.3); Carbon Dioxide 25 mEq/L (23-29); Chloride 109 mEq/L (98-107); Ethanol < 10 mg/dL (Less than 10); Glucose 98 mg/dL (70-105); Osmolality,Calculated 286 (280-300); Potassium 3.6 mEq/L (3.5-5.1); Salicylate < 2.5 mg/dL (15.0-30.0); Sodium 138 mEq/L (136-145); eGFR For Non-African Americans > 60 (> 60)
[2018-10-10 19:24] LABS: Thyroid Stimulating Hormone 2.954 mcIU/mL (0.340-5.600)
[2018-10-10] MEDS ORDERED: Ondansetron ODT 4 MG TAB.RAPDIS SL ONE (20:33)
[2018-10-10] MEDS ORDERED: *HR* LORazepam 1 MG TABLET PO ONE (23:26)
[2018-10-11] MEDS ORDERED: Ziprasidone injection 20 MG/ML VIAL IM ONE (00:11)
--- NOTE | 2018-10-11 00:17 | Emergency Department Note ---
Disposition Clinical Impression: Suicidal ideation Disposition: Admitted As Inpatient Condition: Good Referrals: Larisa Hunt DO [Partnered Physician] - Forms: ED Satisfaction Letter General Adult HPI - General Chief complaint: ED Psychiatric Symptoms Stated complaint: SI Time Seen by Provider: 10/10/18 18:36 Source: patient Limitations: no limitations - History of Present Illness Pain Scale: 0 - Related Data Home Medications Medication Instructions Recorded Confirmed SUMAtriptan Succinate [Imitrex] 100 mg PO Q2H PRN MDD 200MG/24HOUR 07/30/18 10/06/18 Venlafaxine HCl [Venlafaxine HCl 225 mg PO DAILY 07/30/18 10/06/18 ER] Zolpidem [Ambien] 5 mg PO HS 07/30/18 10/06/18 ARIPiprazole [Abilify] 2 mg PO HS 09/26/18 10/06/18 clonazePAM [Klonopin] 0.5 mg PO BID 09/26/18 10/06/18 Venlafaxine [Effexor] 25 mg PO BID 10/06/18 10/06/18 Previous Rx's Medication Instructions Recorded Ondansetron ODT [Zofran ODT] 4 mg SL Q4HR PRN #15 tab.rapdis 09/26/18 Allergies Allergy/AdvReac Type Severity Reaction Status Date / Time No Known Allergies Allergy Verified 07/30/18 12:04 Constitutional: Denies: fever, chills Eyes: Denies: eye pain ENT ED: Denies: ear pain Cardiovascular: Denies: chest pain Respiratory: Reports: as per HPI Gastrointestinal: Denies: abdominal pain, nausea, vomiting Genitourinary: Denies: dysuria Musculoskeletal: Denies: back pain Integumentary: Denies: rash Neurological: Denies: headache Psychiatric: Reports: anxiety, depression, suicidal thoughts. Denies: homicidal thoughts, auditory hallucinations, visual hallucinations Endocrine: Denies: fatigue Hematological/Lymphatic: Denies: easy bleeding Allergic/Immunologic: Denies: facial swelling Past Medical History - Past Medical History Medical history: Reports: migraine Surgical history: Reports: no surgical history Psychiatric history: Reports: anxiety, depression BAR TURNER history: Reports: no BAR TURNER history - Social History Smoking Status: Current every day smoker Smokeless Tobacco Status: No Alcohol use: Reports: none Drug use: Reports: none Physical Exam - General Limitations: no limitations General appearance: alert, anxious Course Vital Signs Temperature 98.7 F 10/10/18 17:43 Pulse Rate 98 10/10/18 17:43 Respiratory Rate 18 10/10/18 17:43 Blood Pressure 129/87 10/10/18 17:43 O2 Sat by Pulse Oximetry 99 10/10/18 17:43 Temperature 98.3 F 10/10/18 19:20 Pulse Rate 87 10/10/18 19:20 Respiratory Rate 15 10/10/18 19:20 Blood Pressure 114/72 10/10/18 19:20 O2 Sat by Pulse Oximetry 99 10/10/18 19:20 Oxygen Delivery Oxygen Delivery Room Air Medical Decision Making - Lab Data Result diagrams: 10/10/18 18:17 10/10/18 18:17 Lab Results 10/10/18 10/10/18 10/10/18 Range/Units 17:50 17:50 17:50 WBC (4.3-11.1) K/mcL RBC (3.82-4.97) M/mcL Hgb (11.5-15.4) g/dL Hct (35.3-44.9) % MCV (83.0-100.0) fL MCH (28.0-33.3) pg MCHC (31.6-35.5) g/dL RDW (11.5-14.5) % Plt Count (140-400) K/mcL MPV (9.4-12.4) fL Immature Gran % (0-4) % Seg Neutrophils % % Lymphocytes % % Monocytes % % Eosinophils % % Basophils % % Neutrophils # (1.6-8.9) K/mcL Lymphocytes # (0.6-4.6) K/mcL Monocytes # (0.0-1.3) K/mcL Eosinophils # (0.0-0.6) K/mcL Basophils # (0.0-0.2) K/mcL Sodium (136-145) mEq/L Potassium (3.5-5.1) mEq/L Chloride (98-107) mEq/L Carbon Dioxide (23-29) mEq/L BUN (6-20) mg/dL Creatinine (0.60-1.20) mg/dL Est GFR ( Amer) (> 60) Est GFR (Non-Af Amer) (> 60) BUN/Creatinine Ratio (6-26) Glucose (70-105) mg/dL Calculated Osmolality (280-300) Calcium (8.6-10.3) mg/dL TSH (0.340-5.600) mcIU/mL Urine Color Yellow (Yellow) Urine Clarity Clear (Clear) Urine pH 7.0 (5.0-8.0) pH Units Ur Specific [place] 1.014 (1.010-1.025) Urine Protein Negative (Neg-Trace) mg/dL Urine Glucose (UA) Normal (Normal) mg/dL Urine Ketones Negative (Negative) mg/dL Urine Blood Negative (Negative) Urine Nitrite Negative (Negative) Urine Bilirubin Negative (Negative) Urine Urobilinogen Normal (Normal) mg/dL Ur Leukocyte Esterase Negative (Negative) Ur Culture Indicated? NO (NO) Urine Test Negative (Negative) Salicylates (15.0-30.0) mg/dL Urine Opiates Screen Negative (Rmnnje=303) ng/mL Acetaminophen (10-20) mcg/mL Ur Barbiturates Screen Negative (Xxrpwf=740) ng/mL Ur Phencyclidine Scrn Negative (Cutoff=25) ng/mL Ur Amphetamines Screen Negative (Tyvmgq=5544) ng/mL U Benzodiazepines Scrn Negative (Jgcpgy=354) ng/mL Urine Cocaine Screen Negative (Cutoff= 300) ng/mL U Marijuana (THC) Screen Negative (Cutoff = 50) ng/mL Ur Drug Screen Interp See Below Ethyl Alcohol (Less than 10) mg/dL 10/10/18 10/10/18 Range/Units 18:17 18:17 WBC 12.0 H (4.3-11.1) K/mcL RBC 4.30 (3.82-4.97) M/mcL Hgb 12.6 (11.5-15.4) g/dL Hct 37.6 (35.3-44.9) % MCV 87.4 (83.0-100.0) fL MCH 29.3 (28.0-33.3) pg MCHC 33.5 (31.6-35.5) g/dL RDW 13.2 (11.5-14.5) % Plt Count 234 (140-400) K/mcL MPV 10.3 (9.4-12.4) fL Immature Gran % 0.3 (0-4) % Seg Neutrophils % 62.1 % Lymphocytes % 27.2 % Monocytes % 6.1 % Eosinophils % 4.3 % Basophils % 0.0 % Neutrophils # 7.4 (1.6-8.9) K/mcL Lymphocytes # 3.3 (0.6-4.6) K/mcL Monocytes # 0.7 (0.0-1.3) K/mcL Eosinophils # 0.5 (0.0-0.6) K/mcL Basophils # 0.0 (0.0-0.2) K/mcL Sodium 138 (136-145) mEq/L Potassium 3.6 (3.5-5.1) mEq/L Chloride 109 H (98-107) mEq/L Carbon Dioxide 25 (23-29) mEq/L BUN 12 (6-20) mg/dL Creatinine 0.84 (0.60-1.20) mg/dL Est GFR ( Amer) > 60 (> 60) Est GFR (Non-Af Amer) > 60 (> 60) BUN/Creatinine Ratio 14 (6-26) Glucose 98 (70-105) mg/dL Calculated Osmolality 286 (280-300) Calcium 9.1 (8.6-10.3) mg/dL TSH 2.954 (0.340-5.600) mcIU/mL Urine Color (Yellow) Urine Clarity (Clear) Urine pH (5.0-8.0) pH Units Ur Specific [place] (1.010-1.025) Urine Protein (Neg-Trace) mg/dL Urine Glucose (UA) (Normal) mg/dL Urine Ketones (Negative) mg/dL Urine Blood (Negative) Urine Nitrite (Negative) Urine Bilirubin (Negative) Urine Urobilinogen (Normal) mg/dL Ur Leukocyte Esterase (Negative) Ur Culture Indicated? (NO) Urine Test (Negative) Salicylates < 2.5 L (15.0-30.0) mg/dL Urine Opiates Screen (Xmyvav=528) ng/mL Acetaminophen < 10 L (10-20) mcg/mL Ur Barbiturates Screen (Bwvwnq=677) ng/mL Ur Phencyclidine Scrn (Cutoff=25) ng/mL Ur Amphetamines Screen (Ojqgoq=7265) ng/mL U Benzodiazepines Scrn (Cxtviu=279) ng/mL Urine Cocaine Screen (Cutoff= 300) ng/mL U Marijuana (THC) Screen (Cutoff = 50) ng/mL Ur Drug Screen Interp Ethyl Alcohol < 10 (Less than 10) mg/dL Attestation Statement - Attestation Attestation: For this encounter, I have reviewed the HISTOLOGY SUPERVISOR or PA documentation, treatment plan, and medical decision making; and I have had face to face time with this patient. 27 year old female presents to the ED with complaints of of SI and anxiety. Meeta has been accepted to [facility] and medicaly cleared. Meeta would like some more meidations to help sleep. She is tolerating PO as well.
[2018-10-11] MEDS ORDERED: Mag Hydrox/Al Hydrox/Simeth 30 ML UDC PO PRN (03:08)
[2018-10-11] MEDS ORDERED: hydrOXYzine pamoate 25 MG CAPSULE PO PRN (03:08)
[2018-10-11] MEDS ORDERED: *HR* LORazepam 2 MG/ML VIAL IM PRN (03:08)
[2018-10-11] MEDS ORDERED: Ibuprofen 400 MG TABLET PO PRN (03:08)
[2018-10-11] MEDS ORDERED: *HR* LORazepam 1 MG TABLET PO PRN (03:08)
[2018-10-11] MEDS ORDERED: MOM Conc 10 ML UD.LIQ PO PRN (03:08)
[2018-10-11] MEDS ORDERED: traZODone 50 MG TABLET PO PRN (03:08)
[2018-10-11] MEDS ORDERED: Haloperidol Lactate 5 MG/ML VIAL IM PRN (03:08)
[2018-10-11] MEDS ORDERED: SUMAtriptan succinate 50 MG TABLET PO PRN (11:51)
[2018-10-11] MEDS ORDERED: ARIPiprazole 2 MG TABLET PO SCH (12:00)
--- NOTE | 2018-10-11 12:04 | Psychiatry History & Physical ---
Date of Encounter: 10/11/18 Time of Encounter: 11:52 History of Present Illness Patient Stated Chief Complaint: suicidal ideation Medicare Admission Attestation: For traditional Medicare patients the provided hospital inpatient services are reasonable and necessary and in the case of services not specified as inpatient-only under 42 CFR 419.22 (n), that they are appropriately provided as inpatient services in accordance 42 CFR 412.3. For Critical Access Hospital the patient may reasonably be expected to be discharged or transferred to a hospital within 96 hours after admission to the Critical Access Hospital. Admitted From: Home Plans for Post Hospital Care: Home History of Present Illness: Ms. Malcolm is a 27 year old female who was admitted secondary to SI. Client states she has struggled with depression and anxiety for years but the suicidal thoughts are new. Had a plan to overdose on her sleeping pills but presented to the hospital instead. Claims her anxiety has been elevated recently and that she feels the increase in anxiety is what is driving the new onset SI. Client is denying SI today and reports she feels "stupid" for even having experienced them. Wants to go home but also wants her anxiety addressed. Also reporting poor sleep even though she takes Ambien and Klonopin at night. Has never been inpatient before. No history of suicide attempts. Currently linked with a counselor and psychiatrist. Strong family support. Lives at home with and three kids. No history of psychosis. Denies HI/AH/VH. No medical problems other than migraines. No AOD issues. Client does have a family history of depression and states her mother takes an antidepressant but does not know which one. At this time client is already taking high dose Effexor, low dose Abilify, low dose Lamictal, Ambien and Klonopin. Discussed treatment options. Client stated if she could sleep better at night and her daytime anxiety was better controlled she would be fine. Current plan is to try Seroquel tonight for sleep (cannot take Trazodone due to migraines) and to increase Klonopin slightly. Discussed habit forming nature of benzodiazepines. Client has no history of AOD issues and intends to self monitor her use. Aware she can switch to Vistaril or something similar if she finds she needs higher doses of Klonopin to keep her anxiety under control. Past Med Surg Social Fam HX - Past Medical History Medical history: migraine - Past Psychiatric History Psychiatric history: Reports: anxiety, depression Family psychiatric history: Yes Family Psychiatric History Details: mother-depression Family History of Suicide: None - Past Surgical History Surgical History: no surgical history - Social History Smoking Status: Current every day smoker Smokeless Tobacco Status: No Alcohol use: none Drug use: none - Family History Mother Living Status: Still Living Hx Family Cardiac Disorders: Yes (HYPERTENSION) Hx Family Respiratory Disorders: No Hx Family Cancer: No Hx Family GI Disorders: No Hx Family Endocrine Disorder: No Hx Family Neuromuscular Disorders: No Hx Family Neurologic Disorders: No Hx Family HEENT Disorders: No Hx Family Autoimmune Disorders: No Grandmother Hx Family Endocrine Disorder: Yes (diabetes) Medications & Allergies SUMAtriptan Succinate [Imitrex] 100 mg PO Q2H PRN MDD 200MG/24HOUR 07/30/18 [History] Venlafaxine HCl [Venlafaxine HCl ER] 225 mg PO DAILY 07/30/18 [History] Zolpidem [Ambien] 5 mg PO HS 07/30/18 [History] ARIPiprazole [Abilify] 2 mg PO HS 09/26/18 [History] Ondansetron ODT [Zofran ODT] 4 mg SL Q4HR PRN #15 tab.rapdis 09/26/18 [Rx] clonazePAM [Klonopin] 0.5 mg PO BID 09/26/18 [History] Venlafaxine [Effexor] 25 mg PO BID 10/06/18 [History] Allergy/AdvReac Type Severity Reaction Status Date / Time No Known Allergies Allergy Verified 07/30/18 12:04 Review of Systems Constitutional: Denies: fever, chills, weakness, weight change Eyes: Denies: eye pain, vision change Ears, Nose, Throat: Denies: ear pain, throat pain, dental pain, hearing loss, congestion Cardiovascular: Denies: chest pain, palpitations, dyspnea on exertion Respiratory: Denies: cough, dyspnea, wheezes Gastrointestinal: Denies: abdominal pain, nausea, vomiting, diarrhea, constipation Genitourinary female: Denies: urgency, dysuria, frequency, abnormal menses, dyspareunia Musculoskeletal: Denies: joint swelling, joint pain Integumentary: Denies: rash, lesions, pruritus Neurological: Denies: headache, weakness, numbness, memory loss Endocrine: Denies: fatigue, heat or cold intolerance Hematologic/Lymphatic: Denies: easy bruising, lymphadenopathy Allergic/Immunologic: Denies: urticaria, itchy eyes Exam - HEENT Head exam IM: Present: atraumatic Eye exam IM: Present: EOMI, normal appearance, PERRL ENT exam IM: Present: normal exam - Neurological Neurological exam: Present: CN II-XII intact - Respiratory Respiratory exam IM: Present: CTAB - GI/Abdominal GI/Abdominal exam IM: Present: normal bowel sounds, soft. Absent: tenderness - Extremities Extremities exam IM: Present: full ROM - Skin Skin exam IM: Present: dry, warm - Constitutional Vitals: Temp Pulse Resp BP Pulse Ox 97.4 F L 84 14 116/77 98 10/11/18 09:00 10/11/18 09:00 10/11/18 09:00 10/11/18 09:00 10/11/18 09:00 General appearance: age & developmentally appropriate, well-groomed, well- nourished - Musculoskeletal Gait: normal Station: relaxed Strength & Tone: normal for patient - Psychiatric Patient Orientation: Yes Person, Yes Time, Yes Place Level of alertness: Alert Behavior: calm, cooperative Psychomotor activity: Normal Eye Contact: Maintains Eye Contact Mood Description: Depressed, Anxious Affect description: congruent with mood Speech Volume: Normal Speech pattern: normal rate, normal rhythm, normal tone, fluent, spontaneous Language & Vocabulary: consistent with education Thought Process: Linear, Goal Oriented Thought Content: Yes Suicidal ideation, No Homicidal ideation, No Overt delusions Perceptual Disturbances: No Auditory hallucinations, No Visual hallucinations Attention Span Ability: Capable of Focused Attention Memory Description: Grossly Intact Patient Reliability: Reliable Historian Fund of knowledge: Yes abstraction ability, Yes average, Yes aware of current events Intelligence Estimate: Average Judgment: Fair Insight: Partial Results - Drug Levels and Toxicology Drug Levels and Toxicology: Drug Levels and Toxicity 10/10/18 10/10/18 17:50 18:17 Urine Opiates Screen Negative Acetaminophen < 10 L Ur Barbiturates Screen Negative Ur Phencyclidine Scrn Negative Ur Amphetamines Screen Negative U Benzodiazepines Scrn Negative Urine Cocaine Screen Negative U Marijuana (THC) Screen Negative Ethyl Alcohol < 10 - Labs Labs: Laboratory Last Values WBC 12.0 K/mcL (4.3-11.1) H 10/10/18 18:17 RBC 4.30 M/mcL (3.82-4.97) 10/10/18 18:17 Hgb 12.6 g/dL (11.5-15.4) 10/10/18 18:17 Hct 37.6 % (35.3-44.9) 10/10/18 18:17 MCV 87.4 fL (83.0-100.0) 10/10/18 18:17 MCH 29.3 pg (28.0-33.3) 10/10/18 18:17 MCHC 33.5 g/dL (31.6-35.5) 10/10/18 18:17 RDW 13.2 % (11.5-14.5) 10/10/18 18:17 Plt Count 234 K/mcL (140-400) 10/10/18 18:17 MPV 10.3 fL (9.4-12.4) 10/10/18 18:17 Immature Gran % 0.3 % (0-4) 10/10/18 18:17 Seg Neutrophils % 62.1 % 10/10/18 18:17 Lymphocytes % 27.2 % 10/10/18 18:17 Monocytes % 6.1 % 10/10/18 18:17 Eosinophils % 4.3 % 10/10/18 18:17 Basophils % 0.0 % 10/10/18 18:17 Neutrophils # 7.4 K/mcL (1.6-8.9) 10/10/18 18:17 Lymphocytes # 3.3 K/mcL (0.6-4.6) 10/10/18 18:17 Monocytes # 0.7 K/mcL (0.0-1.3) 10/10/18 18:17 Eosinophils # 0.5 K/mcL (0.0-0.6) 10/10/18 18:17 Basophils # 0.0 K/mcL (0.0-0.2) 10/10/18 18:17 Sodium 138 mEq/L (136-145) 10/10/18 18:17 Potassium 3.6 mEq/L (3.5-5.1) 10/10/18 18:17 Chloride 109 mEq/L (98-107) H 10/10/18 18:17 Carbon Dioxide 25 mEq/L (23-29) 10/10/18 18:17 BUN 12 mg/dL (6-20) 10/10/18 18:17 Creatinine 0.84 mg/dL (0.60-1.20) 10/10/18 18:17 Est GFR ( Amer) > 60 (> 60) 10/10/18 18:17 Est GFR (Non-Af Amer) > 60 (> 60) 10/10/18 18:17 BUN/Creatinine Ratio 14 (6-26) 10/10/18 18:17 Glucose 98 mg/dL (70-105) 10/10/18 18:17 Calculated Osmolality 286 (280-300) 10/10/18 18:17 Calcium 9.1 mg/dL (8.6-10.3) 10/10/18 18:17 TSH 2.954 mcIU/mL (0.340-5.600) 10/10/18 18:17 Urine Color Yellow (Yellow) 10/10/18 17:50 Urine Clarity Clear (Clear) 10/10/18 17:50 Urine pH 7.0 pH Units (5.0-8.0) 10/10/18 17:50 Ur Specific [place] 1.014 (1.010-1.025) 10/10/18 17:50 Urine Protein Negative mg/dL (Neg-Trace) 10/10/18 17:50 Urine Glucose (UA) Normal mg/dL (Normal) 10/10/18 17:50 Urine Ketones Negative mg/dL (Negative) 10/10/18 17:50 Urine Blood Negative (Negative) 10/10/18 17:50 Urine Nitrite Negative (Negative) 10/10/18 17:50 Urine Bilirubin Negative (Negative) 10/10/18 17:50 Urine Urobilinogen Normal mg/dL (Normal) 10/10/18 17:50 Ur Leukocyte Esterase Negative (Negative) 10/10/18 17:50 Ur Culture Indicated? NO (NO) 10/10/18 17:50 Urine Test Negative (Negative) 10/10/18 17:50 Salicylates < 2.5 mg/dL (15.0-30.0) L 10/10/18 18:17 Urine Opiates Screen Negative ng/mL (Cjrjyp=219) 10/10/18 17:50 Acetaminophen < 10 mcg/mL (10-20) L 10/10/18 18:17 Ur Barbiturates Screen Negative ng/mL (Ailqep=665) 10/10/18 17:50 Ur Phencyclidine Scrn Negative ng/mL (Cutoff=25) 10/10/18 17:50 Ur Amphetamines Screen Negative ng/mL (Nzefol=8955) 10/10/18 17:50 U Benzodiazepines Scrn Negative ng/mL (Cyklsl=328) 10/10/18 17:50 Urine Cocaine Screen Negative ng/mL (Cutoff= 300) 10/10/18 17:50 U Marijuana (THC) Screen Negative ng/mL (Cutoff = 50) 10/10/18 17:50 Ur Drug Screen Interp See Below 10/10/18 17:50 Ethyl Alcohol < 10 mg/dL (Less than 10) 10/10/18 18:17 - Impressions Impressions Chest X-Ray 10/10/18 18:38 IMPRESSION: No acute process. D/ / Maurice Bates MD / Maurice Bates MD Interpreting Provider: Maurice Bates MD Assessment and Plan (1) Major depression Current visit: Yes Status: Acute Plan: Admit inpatient for safety and stabilization, Close observation, Suicide Precautions per unit protocol, Encourage participation in unit milieu, Group Therapy, Monitor sleep, Monitor appetite Risks, benefits, side effects, alternatives discussed w/pt: Yes Patient agreeable to treatment: Yes Plans for Post Hospital Care: Home Estimated Length of Stay (Days): 3 Qualifiers: Major depression recurrence: recurrent Active/Remission status: currently active Major depression episode severity: moderate Qualified Code(s): F33.1 - Major depressive disorder, recurrent, moderate (2) Generalized anxiety disorder Current visit: Yes Status: Acute Plan: Admit inpatient for safety and stabilization, Close observation, Suicide Precautions per unit protocol, Encourage participation in unit milieu, Group Therapy, Monitor sleep, Monitor appetite Risks, benefits, side effects, alternatives discussed w/pt: Yes Patient agreeable to treatment: Yes Plans for Post Hospital Care: Home Estimated Length of Stay (Days): 3
[2018-10-11] MEDS: Venlafaxine XR (24 HR) 75 MG CAP.ER.24H PO SCH (12:06)
[2018-10-11] MEDS: clonazePAM 0.5 MG TABLET PO SCH (12:06)
[2018-10-11] MEDS: Nicotine 14 MG PATCH.TD24 TD SCH (15:41)
[2018-10-11] MEDS ORDERED: lamoTRIgine 25 MG TABLET PO SCH (21:00)
[2018-10-11] MEDS ORDERED: clonazePAM 1 MG TABLET PO SCH (21:00)
[2018-10-12] MEDS ORDERED: ARIPiprazole 5 MG TABLET PO SCH (09:00)
--- NOTE | 2018-10-12 09:04 | Discharge Summary ---
Date of Encounter: 10/12/18 Time of Encounter: 09:05 Diagnosis - Discharge Diagnosis (1) Major depression Status: Acute Qualifiers: Major depression recurrence: recurrent Active/Remission status: currently active Major depression episode severity: moderate Qualified Code(s): F33.1 - Major depressive disorder, recurrent, moderate (2) Generalized anxiety disorder Status: Acute Medications - Discharge Medications Prescriptions: hydrOXYzine pamoate [HydrOXYzine Pamoate] 25 mg PO TID PRN #90 capsule PRN Reason: Anxiety Quetiapine Fumarate [Seroquel] 100 mg PO HS #120 tablet SUMAtriptan Succinate [Imitrex] 100 mg PO Q2H PRN MDD 200MG/24HOUR 07/30/18 [History] Venlafaxine HCl [Venlafaxine HCl ER] 225 mg PO DAILY 07/30/18 [History] Ondansetron ODT [Zofran ODT] 4 mg SL Q4HR PRN #15 tab.rapdis 09/26/18 [Rx] Amlodipine Besylate 2.5 mg PO DAILY 10/11/18 [History] Metoprolol XL (24 HR) Succ [Toprol Xl] 25 mg PO DAILY 10/11/18 [History] Pantoprazole Sodium 40 mg PO DAILY 10/11/18 [History] lamoTRIgine [Lamictal] 25 mg PO DAILY 10/11/18 [History] ARIPiprazole [Abilify] 5 mg PO DAILY tablet 10/12/18 [Rx] Quetiapine Fumarate [Seroquel] 100 mg PO HS #120 tablet 10/12/18 [Rx] Zolpidem [Ambien] 5 mg PO HS PRN tablet 10/12/18 [Rx] clonazePAM [Klonopin] 0.5 mg PO QAM tablet 10/12/18 [Rx] clonazePAM [Klonopin] 1 mg PO HS #0 tablet 10/12/18 [Rx] hydrOXYzine pamoate [HydrOXYzine Pamoate] 25 mg PO TID PRN #90 capsule 10/12/18 [Rx] Allergy/AdvReac Type Severity Reaction Status Date / Time No Known Allergies Allergy Verified 07/30/18 12:04 Results Procedures and tests throughout hospitalization: Completed Lab Orders Category Date Time Status Acetaminophen Stat Lab 10/10/18 18:17 Completed Basic Metabolic Panel Stat Lab 10/10/18 18:17 Completed Complete Blood Count [HEME] Stat Lab 10/10/18 18:17 Completed Drug Screen, Urine [UCHEM] Stat Lab 10/10/18 17:50 Completed Ethanol Stat Lab 10/10/18 18:17 Completed Test Result, Urine [URIN] Stat Lab 10/10/18 17:50 Completed Salicylate Stat Lab 10/10/18 18:17 Completed Thyroid Stimulating Hormone Stat Lab 10/10/18 18:17 Completed Urinalysis Reflex Cult & Micro [URIN] Stat Lab 10/10/18 17:50 Completed Completed Imaging Orders Category Date Time Status XR chest 1V portable [XR] Stat Exams 10/10/18 18:38 Completed Provider Date of admission: 10/11/18 04:18 Primary care physician: PCP NONE Discharging clinician: Laura Jones Psychiatry Exam - Constitutional Vitals: Temp Pulse Resp BP Pulse Ox 98.1 F 89 16 117/79 99 10/11/18 19:30 10/11/18 19:30 10/11/18 19:30 10/11/18 19:30 10/11/18 19:30 General appearance: age & developmentally appropriate, well-groomed, well- nourished - Musculoskeletal Gait: normal Station: relaxed Strength & Tone: normal for patient - Psychiatric Patient Orientation: Yes Person, Yes Time, Yes Place Level of alertness: Alert Behavior: calm, cooperative Psychomotor activity: Normal Eye Contact: Maintains Eye Contact Mood Description: Anxious Affect description: blunted Speech Volume: Normal Speech pattern: normal rate, normal rhythm, normal tone, fluent, spontaneous Language & Vocabulary: consistent with education Thought Process: Linear, Goal Oriented Thought Content: No Suicidal ideation, No Homicidal ideation, No Overt delusions Perceptual Disturbances: No Auditory hallucinations, No Visual hallucinations Attention Span Ability: Capable of Focused Attention Memory Description: Grossly Intact Patient Reliability: Reliable Historian Fund of knowledge: Yes abstraction ability, Yes aware of current events Intelligence Estimate: Average Judgment: Fair Insight: Partial Hospital Course Hospital course: Ms. Malcolm is a 27 year old female who was admitted secondary to SI. Client has been struggling with depression and anxiety for a long time but this was the first time she had experienced SI. She was also having trouble sleeping. She was started on her home meds of Effexor XR, Abilify, Lamictal, and Klonopin. Her Klonopin dose was increased slightly, her home Ambien was changed to a prn, and low dose Seroquel was added for sleep. Today client is still noticing some anxiety and her sleep was restless. However, she is adamantly denying SI and wants to go home. States she knows the change in meds will take time to work but she wants to be with her and three children. She is already linked with mental health services through [facility] and staff will call her Sunday with a follow up appointment. Despite her anxiety client states her mood is good today and she is denying SI/HI/AH/VH. States she has no thoughts of self harm and agrees to come back to the ER if symptoms worsen or SI returns. She is future oriented and feels stable for discharge. Total time spent with client greater than 30 minutes. - Time Spent with Patient Total time spent providing and/or coordinating discharge services: Assessment and Plan - Patient/Caregiver Discharge Instructions Activity: resume usual activities as tolerated Diet: regular diet - Follow up Plan Follow up with: NONE,PCP [Primary Care Provider] - Functional capacity at discharge: independent ambulation Overall status at discharge: Stable Disposition: Home, Self-Care Quality - Multiple Antipsychotics Patient discharged on 2 or more antipsychotic medications: Yes - Justification Documentation of: Other justification (seroquel being used off label for sleep, abilify for mood) Procedures - Procedures Procedures: Medication Management, Crisis Stabilization, Supportive Therapy, Group Therapy
[2018-10-12 09:08] VITALS: BP 115/79
[2018-10-12] MEDS: Nicotine 14 MG PATCH.TD24 TD SCH (09:11)
[2018-10-12] MEDS: clonazePAM 0.5 MG TABLET PO SCH (09:12)
[2018-10-12] MEDS: Venlafaxine XR (24 HR) 75 MG CAP.ER.24H PO SCH (09:12)
--- NOTE | 2018-10-12 21:18 | Electrocardiograph Report ---
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
== END 2018-10-12 10:25 | disposition home or self-care (01) | DRG 885 ==
LOC: EMEROOARM 17:41 → INTOOBSV 10-11 02:09 → 1ANU 10-11 02:09
PROVIDERS: ADMIT Psychiatry & Neurology Psychiatry; ATTEND Psychiatry & Neurology Psychiatry

== ENCOUNTER 2019-10-01 14:21 | Inpatient (IN) ==
[2019-10-01 15:05] LABS: Basophils % 0.3 %; Eosinophils # 0.2 K/mcL (0.0-0.6); Hematocrit 40.9 % (35.3-44.9); Hemoglobin 13.8 g/dL (11.5-15.4); Immature Granulocytes % 0.2 % (0-4); Lymphocytes # 2.6 K/mcL (0.6-4.6); Lymphocytes % 23.3 %; Mean Corpuscular HGB Conc 33.7 g/dL (31.6-35.5); Mean Corpuscular Hemoglobin 29.2 pg (28.0-33.3); Mean Corpuscular Volume 86.5 fL (83.0-100.0); Mean Platelet Volume 9.9 fL (9.4-12.4); Monocytes # 0.5 K/mcL (0.0-1.3); Monocytes % 4.7 %; Neutrophils # 7.8 K/mcL (1.6-8.9); Platelet Count 308 K/mcL (140-400); Red Blood Count 4.73 M/mcL (3.82-4.97); Red Cell Distribution Width 12.8 % (11.5-14.5); Segmented Neutrophils % 69.5 %; White Blood Count 11.2 K/mcL (4.3-11.1)
[2019-10-01 15:26] LABS: Acetaminophen < 10 mcg/mL (10-20); BUN/Creatinine Ratio 11 (6-26); Blood Urea Nitrogen 8 mg/dL (6-20); Calcium 9.3 mg/dL (8.6-10.3); Carbon Dioxide 25 mEq/L (23-29); Chloride 107 mEq/L (98-107); Ethanol < 10 mg/dL (Less than 10); Glucose 76 mg/dL (70-105); Osmolality,Calculated 285 (280-300); Potassium 3.7 mEq/L (3.5-5.1); Salicylate < 2.5 mg/dL (15.0-30.0); Sodium 139 mEq/L (136-145); eGFR For African Americans > 60 (> 60); eGFR For Non-African Americans > 60 (> 60)
[2019-10-01 15:31] LABS: Bilirubin,Urine Negative (Negative); Blood,Urine Negative (Negative); Clarity,Urine Clear (Clear); Color,Urine Yellow (Yellow); Glucose,Urine (UA) Normal (Normal); Ketones,Urine Negative (Negative); Leukocyte Esterase,Urine Negative (Negative); Nitrite,Urine Negative (Negative); PH,Urine 6.5 pH Units (5.0-8.0); Protein,Urine Negative (Neg-Trace); Specific Gravity,Urine 1.008 (1.010-1.025); Urobilinogen,Urine Normal (Normal)
[2019-10-01 15:39] LABS: Amphetamine Screen,Urine Negative ng/mL (Cutoff=1000); Barbiturate Screen,Urine Negative ng/mL (Cutoff=200); Benzodiazepines Screen,Urine Negative ng/mL (Cutoff=200); Cannabinoid Screen,Urine Negative ng/mL (Cutoff = 50); Cocaine Screen,Urine Negative ng/mL (Cutoff= 300); Opiate Screen,Urine Negative ng/mL (Cutoff=300); Phencyclidine Screen,Urine Negative ng/mL (Cutoff=25)
[2019-10-01] MEDS ORDERED: Mag Hydrox/Al Hydrox/Simeth 30 ML UDC PO PRN (17:01)
[2019-10-01] MEDS ORDERED: *HR* LORazepam 1 MG TABLET PO PRN (17:01)
[2019-10-01] MEDS ORDERED: Acetaminophen 325 MG TABLET PO PRN (17:01)
[2019-10-01] MEDS ORDERED: MOM Conc 10 ML UD.LIQ PO PRN (17:01)
[2019-10-01] MEDS ORDERED: traZODone 50 MG TABLET PO PRN (17:01)
[2019-10-01] MEDS ORDERED: Haloperidol Lactate 5 MG/ML VIAL IM PRN (17:01)
[2019-10-01] MEDS ORDERED: *HR* LORazepam 2 MG/ML VIAL IM PRN (17:01)
[2019-10-01] MEDS ORDERED: QUEtiapine Fumarate 25 MG TABLET PO PRN (18:05)
[2019-10-01] MEDS: Nicotine 14 MG PATCH.TD24 TD SCH (18:57)
[2019-10-01] MEDS: hydrOXYzine pamoate 25 MG CAPSULE PO PRN (20:33)
[2019-10-02] MEDS: Nicotine 14 MG PATCH.TD24 TD SCH (08:36)
[2019-10-02] MEDS: ALPRAZolam 0.5 MG TABLET PO PRN (10:43)
[2019-10-02] MEDS: Venlafaxine XR (24 HR) 37.5 MG CAP.ER.24H PO SCH (11:34)
[2019-10-02] MEDS: hydrOXYzine pamoate 25 MG CAPSULE PO PRN (17:50)
[2019-10-02] MEDS: lamoTRIgine 25 MG TABLET PO SCH (21:10)
[2019-10-02] MEDS: QUEtiapine Fumarate 100 MG TABLET PO SCH (21:10)
[2019-10-03] MEDS: Nicotine 14 MG PATCH.TD24 TD SCH (08:24)
[2019-10-03] MEDS: Venlafaxine XR (24 HR) 37.5 MG CAP.ER.24H PO SCH (08:24)
[2019-10-03] MEDS: ALPRAZolam 0.5 MG TABLET PO PRN ×2 (09:25→16:27)
[2019-10-03] MEDS: QUEtiapine Fumarate 100 MG TABLET PO SCH (20:47)
[2019-10-03] MEDS: lamoTRIgine 25 MG TABLET PO SCH (20:48)
[2019-10-04] MEDS ORDERED: Venlafaxine XR (24 HR) 75 MG CAP.ER.24H PO SCH (09:00)
[2019-10-04] MEDS: Nicotine 14 MG PATCH.TD24 TD SCH (09:10)
[2019-10-04] MEDS: ALPRAZolam 0.5 MG TABLET PO PRN (09:11)
[2019-10-04 09:47] VITALS: BP 143/105
== END 2019-10-04 10:15 | disposition home or self-care (01) | DRG 885 ==
LOC: 1ANU 14:21 → EMEROOARM 14:21 → 1ANU 16:56
PROVIDERS: ADMIT Psychiatry & Neurology Psychiatry; ATTEND Psychiatry & Neurology Psychiatry

== ENCOUNTER 2019-10-25 14:30 | Observation (INO) ==
[2019-10-25] MEDS ORDERED: ALPRAZolam 0.5 MG TABLET PO ONE (14:51)
[2019-10-25 15:04] LABS: Bilirubin,Urine Negative (Negative); Blood,Urine Large (Negative); Clarity,Urine Cloudy (Clear); Color,Urine Yellow (Yellow); Glucose,Urine (UA) Normal (Normal); Ketones,Urine Negative (Negative); Leukocyte Esterase,Urine Negative (Negative); Nitrite,Urine Negative (Negative); PH,Urine 7.5 pH Units (5.0-8.0); Protein,Urine Negative (Neg-Trace); Specific Gravity,Urine 1.011 (1.010-1.025); Urobilinogen,Urine Normal (Normal)
[2019-10-25 15:05] LABS: Basophils % 0.3 %; Eosinophils # 0.2 K/mcL (0.0-0.6); Eosinophils % 1.7 %; Hematocrit 44.5 % (35.3-44.9); Hemoglobin 14.8 g/dL (11.5-15.4); Immature Granulocytes % 0.3 % (0-4); Lymphocytes % 27.4 %; Mean Corpuscular HGB Conc 33.3 g/dL (31.6-35.5); Mean Corpuscular Hemoglobin 28.7 pg (28.0-33.3); Mean Corpuscular Volume 86.2 fL (83.0-100.0); Mean Platelet Volume 9.9 fL (9.4-12.4); Monocytes # 0.5 K/mcL (0.0-1.3); Monocytes % 4.5 %; Neutrophils # 7.2 K/mcL (1.6-8.9); Platelet Count 262 K/mcL (140-400); Red Blood Count 5.16 M/mcL (3.82-4.97); Red Cell Distribution Width 12.5 % (11.5-14.5); Segmented Neutrophils % 65.8 %; White Blood Count 10.9 K/mcL (4.3-11.1)
[2019-10-25 15:07] LABS: Bacteria,Urine None Seen per hpf (None-Few); Hyaline Casts,Urine None Seen per lpf (None-Few); Squamous Epithelial Cell,Urine Many per lpf (None-Few); WBC,Urine 0-3 per hpf (0-3)
[2019-10-25 15:14] LABS: Amphetamine Screen,Urine Negative ng/mL (Cutoff=1000); Barbiturate Screen,Urine Negative ng/mL (Cutoff=200); Benzodiazepines Screen,Urine Negative ng/mL (Cutoff=200); Cannabinoid Screen,Urine Negative ng/mL (Cutoff = 50); Cocaine Screen,Urine Negative ng/mL (Cutoff= 300); Opiate Screen,Urine Negative ng/mL (Cutoff=300); Phencyclidine Screen,Urine Negative ng/mL (Cutoff=25)
[2019-10-25 15:28] LABS: Acetaminophen < 10 mcg/mL (10-20); Alanine Aminotransferase 14 Units/L (7-52); Albumin 4.8 g/dL (3.5-5.7); Albumin/Globulin Ratio 1.7 (1.1-2.2); Alkaline Phosphatase 104 Units/L (34-104); Aspartate Amino Transferase 15 Units/L (13-39); BUN/Creatinine Ratio 8 (6-26); Bilirubin,Direct 0.1 mg/dL (0.0-0.2); Bilirubin,Indirect 0.2 mg/dL (0.0-1.0); Bilirubin,Total 0.3 mg/dL (0.3-1.0); Blood Urea Nitrogen 6 mg/dL (6-20); Calcium 9.7 mg/dL (8.6-10.3); Carbon Dioxide 24 mEq/L (23-29); Chloride 107 mEq/L (98-107); Ethanol < 10 mg/dL (Less than 10); Globulin 2.9 g/dL (2.4-3.5); Glucose 90 mg/dL (70-105); Osmolality,Calculated 285 (280-300); Potassium 3.5 mEq/L (3.5-5.1); Salicylate < 2.5 mg/dL (15.0-30.0); Sodium 139 mEq/L (136-145); Total Protein 7.7 g/dL (6.4-8.9); eGFR For African Americans > 60 (> 60); eGFR For Non-African Americans > 60 (> 60)
[2019-10-25 15:40] LABS: Thyroid Stimulating Hormone 2.185 mcIU/mL (0.340-5.600)
[2019-10-25] MEDS ORDERED: Mag Hydrox/Al Hydrox/Simeth 30 ML UDC PO PRN (16:51)
[2019-10-25] MEDS ORDERED: haloperidoL 5 MG TABLET PO PRN (16:51)
[2019-10-25] MEDS ORDERED: QUEtiapine Fumarate 25 MG TABLET PO PRN (16:51)
[2019-10-25] MEDS ORDERED: MOM Conc 10 ML UD.LIQ PO PRN (16:51)
[2019-10-25] MEDS ORDERED: Haloperidol Lactate 5 MG/ML VIAL IM PRN (16:51)
[2019-10-25] MEDS ORDERED: Ibuprofen 400 MG TABLET PO PRN (16:51)
[2019-10-25] MEDS ORDERED: *HR* LORazepam 1 MG TABLET PO PRN (16:51)
[2019-10-25] MEDS ORDERED: *HR* LORazepam 2 MG/ML VIAL IM PRN (16:51)
[2019-10-25] MEDS: hydrOXYzine pamoate 25 MG CAPSULE PO PRN (17:43)
[2019-10-25] MEDS: QUEtiapine Fumarate 100 MG TABLET PO SCH (20:23)
[2019-10-25] MEDS ORDERED: lamoTRIgine 25 MG TABLET PO SCH (21:00)
[2019-10-26] MEDS: Venlafaxine XR (24 HR) 75 MG CAP.ER.24H PO SCH (08:34)
[2019-10-26] MEDS: Nicotine 14 MG PATCH.TD24 TD SCH (08:55)
[2019-10-26] MEDS: ALPRAZolam 0.5 MG TABLET PO PRN ×2 (10:39→17:18)
[2019-10-26] MEDS: QUEtiapine Fumarate 25 MG TABLET PO SCH (11:03)
[2019-10-26] MEDS: hydrOXYzine pamoate 25 MG CAPSULE PO PRN (20:15)
[2019-10-26] MEDS: QUEtiapine Fumarate 100 MG TABLET PO SCH (20:15)
[2019-10-26] MEDS ORDERED: lamoTRIgine 25 MG TABLET PO SCH (21:00)
[2019-10-27] MEDS: Nicotine 14 MG PATCH.TD24 TD SCH (08:31)
[2019-10-27] MEDS: Venlafaxine XR (24 HR) 75 MG CAP.ER.24H PO SCH (08:31)
[2019-10-27] MEDS: QUEtiapine Fumarate 25 MG TABLET PO SCH (08:31)
[2019-10-27 08:40] VITALS: BP 105/74
[2019-10-27] MEDS ORDERED: Venlafaxine XR (24 HR) 37.5 MG CAP.ER.24H PO SCH (09:00)
[2019-10-27] MEDS: ALPRAZolam 0.5 MG TABLET PO PRN (09:30)
[2019-10-28] MEDS ORDERED: Venlafaxine XR (24 HR) 37.5 MG CAP.ER.24H PO SCH (09:00)
== END 2019-10-27 10:07 | disposition home or self-care (01) ==
LOC: EMEROOARM 14:30 → 1ANU 14:30
PROVIDERS: ADMIT Psychiatry & Neurology Psychiatry; ATTEND Psychiatry & Neurology Psychiatry

== ENCOUNTER 2020-04-07 00:54 | Inpatient (IN) ==
[2020-04-07 03:41] LABS: Adenovirus Not Detected (Not Detect); Bordetella Pertussis Not Detected (Not Detect); Chlamydophila pneumoniae Not Detected (Not Detect); Coronavirus 229E Not Detected (Not Detect); Coronavirus HKU1 Not Detected (Not Detect); Coronavirus NL63 Not Detected (Not Detect); Coronavirus OC43 Not Detected (Not Detect); Human Metapneumovirus Not Detected (Not Detect); Human Rhinovirus/Enterovirus Not Detected (Not Detect); Influenza A Subtype 2009 H1 Not Detected (Not Detect); Influenza B Not Detected (Not Detect); Mycoplasma pneumoniae Not Detected (Not Detect); Parainfluenza Virus 1 Not Detected (Not Detect); Parainfluenza Virus 2 Not Detected (Not Detect); Parainfluenza Virus 3 Not Detected (Not Detect); Parainfluenza Virus 4 Not Detected (Not Detect); Respiratory Syncytial Virus Not Detected (Not Detect)
[2020-04-07] MEDS ORDERED: Naloxone 0.4 MG/ML INJ IVP PRN (04:07)
[2020-04-07] MEDS ORDERED: 0.9 % Sodium Chloride 1,000 ML IVC SCH (06:30)
[2020-04-07] MEDS: *HR* Promethazine 25 MG/ML VIAL IVP PRN ×3 (06:47→20:42)
[2020-04-07 08:06] LABS: Chol/HDL Ratio 24.3 (0-4.9)
[2020-04-07 08:08] LABS: Amylase 28 Units/L (29-103); Lactate Dehydrogenase 367 Units/L (140-271); Lipase < 3 Units/L (11-82)
[2020-04-07 09:49] LABS: Red Cell Distribution Width 13.6 % (11.5-14.5)
[2020-04-07 09:51] LABS: Hemoglobin 11.6 g/dL (11.5-15.4); Immature Platelets 7.6 % (1.1-6.1); Mean Corpuscular HGB Conc 33.1 g/dL (31.6-35.5); Mean Corpuscular Hemoglobin 27.7 pg (28.0-33.3); Mean Corpuscular Volume 83.5 fL (83.0-100.0); Mean Platelet Volume 11.1 fL (9.4-12.4); Red Blood Count 4.19 M/mcL (3.82-4.97); White Blood Count 6.2 K/mcL (4.3-11.1)
[2020-04-07 09:57] LABS: Alanine Aminotransferase 256 Units/L (7-52); Albumin/Globulin Ratio 1.6 (1.1-2.2); Alkaline Phosphatase 556 Units/L (34-104); Aspartate Amino Transferase 183 Units/L (13-39); BUN/Creatinine Ratio 9 (6-26); Bilirubin,Total 9.5 mg/dL (0.3-1.0); Blood Urea Nitrogen 5 mg/dL (6-20); Calcium 7.9 mg/dL (8.6-10.3); Carbon Dioxide 23 mEq/L (23-29); Chloride 105 mEq/L (98-107); Globulin 1.9 g/dL (2.4-3.5); Glucose 84 mg/dL (70-105); Osmolality,Calculated 276 (280-300); Potassium 3.4 mEq/L (3.5-5.1); Sodium 135 mEq/L (136-145); Total Protein 4.9 g/dL (6.4-8.9); eGFR For African Americans > 60 (> 60); eGFR For Non-African Americans > 60 (> 60)
[2020-04-07 11:18] LABS: Amphetamine Screen,Urine Negative ng/mL (Cutoff=1000); Barbiturate Screen,Urine Negative ng/mL (Cutoff=200); Benzodiazepines Screen,Urine Negative ng/mL (Cutoff=200); Cannabinoid Screen,Urine Negative ng/mL (Cutoff = 50); Cocaine Screen,Urine Negative ng/mL (Cutoff= 300); Opiate Screen,Urine Negative ng/mL (Cutoff=300); Phencyclidine Screen,Urine Negative ng/mL (Cutoff=25)
[2020-04-07] MEDS ORDERED: ALPRAZolam 0.5 MG TABLET PO PRN (13:58)
[2020-04-07] MEDS ORDERED: QUEtiapine Fumarate 100 MG TABLET PO PRN (13:58)
[2020-04-07] MEDS ORDERED: *HR* HYDROcodone/Acet 5/325 mg TABLET PO PRN (13:58)
[2020-04-07] MEDS: lamoTRIgine 100 MG TABLET PO SCH (20:42)
[2020-04-08 04:55] LABS: Basophils % 0.3 %; Eosinophils # 0.3 K/mcL (0.0-0.6); Eosinophils % 3.7 %; Hematocrit 34.5 % (35.3-44.9); Hemoglobin 11.5 g/dL (11.5-15.4); Lymphocytes # 2.1 K/mcL (0.6-4.6); Lymphocytes % 29.9 %; Mean Corpuscular HGB Conc 33.3 g/dL (31.6-35.5); Mean Corpuscular Hemoglobin 27.6 pg (28.0-33.3); Mean Corpuscular Volume 82.7 fL (83.0-100.0); Mean Platelet Volume 10.6 fL (9.4-12.4); Monocytes # 1.1 K/mcL (0.0-1.3); Monocytes % 15.1 %; Neutrophils # 3.4 K/mcL (1.6-8.9); Platelet Count 153 K/mcL (140-400); Red Blood Count 4.17 M/mcL (3.82-4.97); Red Cell Distribution Width 13.8 % (11.5-14.5)
[2020-04-08 05:02] LABS: INR 1.1; Prothrombin Time 12.4 Seconds (9.4-12.1)
[2020-04-08 05:05] LABS: Activated Partial Thrombo Time 39.8 Seconds (26.0-36.0)
[2020-04-08 05:15] LABS: Alanine Aminotransferase 290 Units/L (7-52); Albumin 2.9 g/dL (3.5-5.7); Albumin/Globulin Ratio 1.5 (1.1-2.2); Alkaline Phosphatase 705 Units/L (34-104); Aspartate Amino Transferase 256 Units/L (13-39); BUN/Creatinine Ratio 11 (6-26); Bilirubin,Direct 6.2 mg/dL (0.0-0.2); Bilirubin,Indirect 2.8 mg/dL (0.0-1.0); Blood Urea Nitrogen 6 mg/dL (6-20); Calcium 7.9 mg/dL (8.6-10.3); Carbon Dioxide 25 mEq/L (23-29); Chloride 106 mEq/L (98-107); Glucose 92 mg/dL (70-105); Osmolality,Calculated 277 (280-300); Phosphorous 2.5 mg/dL (2.7-4.5); Potassium 3.8 mEq/L (3.5-5.1); Sodium 135 mEq/L (136-145); Total Protein 4.9 g/dL (6.4-8.9); eGFR For African Americans > 60 (> 60); eGFR For Non-African Americans > 60 (> 60)
[2020-04-08] MEDS ORDERED: cefTRIAXone 1,000 MG in Water for inj. (sterile) 10 ML IVP SCH (09:00)
[2020-04-08] MEDS: Venlafaxine XR (24 HR) 150 MG CAP.ER.24H PO SCH (09:45)
[2020-04-08] MEDS: *HR* Promethazine 25 MG/ML VIAL IVP PRN ×2 (09:45→18:39)
[2020-04-08] MEDS ORDERED: 0.9 % Sodium Chloride 1,000 ML IVC SCH ×2 (11:15→13:45)
[2020-04-08] MEDS: Ketorolac 15 MG/ML VIAL IVP PRN ×2 (13:13→19:24)
[2020-04-08] MEDS: Ondansetron 4 MG/2 ML VIAL IVP PRN (13:14)
[2020-04-08] MEDS: lamoTRIgine 100 MG TABLET PO SCH (21:22)
[2020-04-09] MEDS: *HR* Promethazine 25 MG/ML VIAL IVP PRN ×2 (00:39→21:17)
[2020-04-09] MEDS: Venlafaxine XR (24 HR) 150 MG CAP.ER.24H PO SCH (09:31)
[2020-04-09] MEDS: Ondansetron 4 MG/2 ML VIAL IVP PRN ×2 (09:32→15:42)
[2020-04-09 09:38] LABS: Basophils % 0.3 %; Eosinophils # 0.2 K/mcL (0.0-0.6); Eosinophils % 1.8 %; Hematocrit 31.6 % (35.3-44.9); Hemoglobin 10.7 g/dL (11.5-15.4); Immature Granulocytes % 3.2 % (0-4); Lymphocytes # 2.1 K/mcL (0.6-4.6); Lymphocytes % 22.6 %; Mean Corpuscular HGB Conc 33.9 g/dL (31.6-35.5); Mean Corpuscular Hemoglobin 28.5 pg (28.0-33.3); Mean Platelet Volume 10.4 fL (9.4-12.4); Monocytes # 1.1 K/mcL (0.0-1.3); Monocytes % 11.3 %; Neutrophils # 5.7 K/mcL (1.6-8.9); Platelet Count 198 K/mcL (140-400); Red Blood Count 3.76 M/mcL (3.82-4.97); Segmented Neutrophils % 60.8 %; White Blood Count 9.3 K/mcL (4.3-11.1)
[2020-04-09 09:57] LABS: Alanine Aminotransferase 333 Units/L (7-52); Albumin 2.8 g/dL (3.5-5.7); Albumin/Globulin Ratio 1.5 (1.1-2.2); Alkaline Phosphatase 742 Units/L (34-104); Aspartate Amino Transferase 251 Units/L (13-39); BUN/Creatinine Ratio 8 (6-26); Bilirubin,Direct 4.8 mg/dL (0.0-0.2); Bilirubin,Indirect 2.4 mg/dL (0.0-1.0); Bilirubin,Total 7.2 mg/dL (0.3-1.0); Blood Urea Nitrogen 4 mg/dL (6-20); Calcium 7.8 mg/dL (8.6-10.3); Carbon Dioxide 24 mEq/L (23-29); Chloride 104 mEq/L (98-107); Globulin 1.9 g/dL (2.4-3.5); Glucose 133 mg/dL (70-105); Osmolality,Calculated 279 (280-300); Potassium 3.2 mEq/L (3.5-5.1); Sodium 135 mEq/L (136-145); Total Protein 4.7 g/dL (6.4-8.9); eGFR For African Americans > 60 (> 60); eGFR For Non-African Americans > 60 (> 60)
[2020-04-09 12:33] LABS: ANA IgG by ELISA NONE DETECTED (None Detected)
[2020-04-09 12:34] LABS: Liver-Kidney Microsome IgG <1:20 (<1:20)
[2020-04-09] MEDS: 0.9 % Sodium Chloride 1,000 ML IVC SCH (12:50)
[2020-04-09] MEDS ORDERED: Potassium Chloride 40 MEQ, Lidocaine 1% 2 ML in 0.9 % Sodium Chloride 500 ML IVPB ONE (14:36)
[2020-04-09] MEDS: lamoTRIgine 100 MG TABLET PO SCH (21:15)
[2020-04-10 03:59] LABS: Basophils # 0.1 K/mcL (0.0-0.2); Basophils % 0.5 %; Eosinophils # 0.2 K/mcL (0.0-0.6); Eosinophils % 1.5 %; Hematocrit 32.6 % (35.3-44.9); Hemoglobin 11.1 g/dL (11.5-15.4); Immature Granulocytes % 4.6 % (0-4); Lymphocytes # 2.7 K/mcL (0.6-4.6); Lymphocytes % 23.6 %; Mean Corpuscular Hemoglobin 28.6 pg (28.0-33.3); Mean Platelet Volume 10.1 fL (9.4-12.4); Monocytes # 1.8 K/mcL (0.0-1.3); Monocytes % 15.5 %; Neutrophils # 6.1 K/mcL (1.6-8.9); Platelet Count 226 K/mcL (140-400); Red Blood Count 3.88 M/mcL (3.82-4.97); Red Cell Distribution Width 14.3 % (11.5-14.5); Segmented Neutrophils % 54.3 %; White Blood Count 11.3 K/mcL (4.3-11.1)
[2020-04-10 04:22] LABS: Alanine Aminotransferase 350 Units/L (7-52); Albumin 2.8 g/dL (3.5-5.7); Albumin/Globulin Ratio 1.3 (1.1-2.2); Alkaline Phosphatase 752 Units/L (34-104); Aspartate Amino Transferase 234 Units/L (13-39); BUN/Creatinine Ratio 6 (6-26); Bilirubin,Direct 4.1 mg/dL (0.0-0.2); Bilirubin,Indirect 2.4 mg/dL (0.0-1.0); Bilirubin,Total 6.5 mg/dL (0.3-1.0); Blood Urea Nitrogen 3 mg/dL (6-20); Calcium 7.9 mg/dL (8.6-10.3); Carbon Dioxide 25 mEq/L (23-29); Chloride 106 mEq/L (98-107); Globulin 2.1 g/dL (2.4-3.5); Glucose 94 mg/dL (70-105); Osmolality,Calculated 278 (280-300); Sodium 136 mEq/L (136-145); Total Protein 4.9 g/dL (6.4-8.9); eGFR For African Americans > 60 (> 60); eGFR For Non-African Americans > 60 (> 60)
[2020-04-10] MEDS: Ondansetron 4 MG/2 ML VIAL IVP PRN (07:13)
[2020-04-10] MEDS: 0.9 % Sodium Chloride 1,000 ML IVC SCH ×3 (07:20→19:42)
[2020-04-10] MEDS ORDERED: Venlafaxine XR (24 HR) 75 MG CAP.ER.24H PO SCH (09:00)
[2020-04-10] MEDS: *HR* Promethazine 25 MG/ML VIAL IVP PRN (13:47)
[2020-04-10 13:57] LABS: Smooth Muscle Ab Titer IgG 1:20 (<1:20)
[2020-04-10] MEDS: lamoTRIgine 100 MG TABLET PO SCH (22:01)
[2020-04-11 04:08] LABS: Hematocrit 34.7 % (35.3-44.9); Hemoglobin 11.5 g/dL (11.5-15.4); Mean Corpuscular HGB Conc 33.1 g/dL (31.6-35.5); Mean Corpuscular Hemoglobin 28.4 pg (28.0-33.3); Mean Corpuscular Volume 85.7 fL (83.0-100.0); Mean Platelet Volume 10.1 fL (9.4-12.4); Platelet Count 299 K/mcL (140-400); Red Blood Count 4.05 M/mcL (3.82-4.97); Red Cell Distribution Width 14.6 % (11.5-14.5); White Blood Count 12.1 K/mcL (4.3-11.1)
[2020-04-11 04:27] LABS: Alanine Aminotransferase 307 Units/L (7-52); Albumin 2.9 g/dL (3.5-5.7); Albumin/Globulin Ratio 1.3 (1.1-2.2); Alkaline Phosphatase 782 Units/L (34-104); Aspartate Amino Transferase 138 Units/L (13-39); BUN/Creatinine Ratio 13 (6-26); Bilirubin,Total 5.3 mg/dL (0.3-1.0); Blood Urea Nitrogen 6 mg/dL (6-20); Calcium 8.2 mg/dL (8.6-10.3); Carbon Dioxide 25 mEq/L (23-29); Chloride 103 mEq/L (98-107); Globulin 2.2 g/dL (2.4-3.5); Glucose 98 mg/dL (70-105); Osmolality,Calculated 276 (280-300); Sodium 134 mEq/L (136-145); Total Protein 5.1 g/dL (6.4-8.9); eGFR For African Americans > 60 (> 60); eGFR For Non-African Americans > 60 (> 60)
[2020-04-11] MEDS: 0.9 % Sodium Chloride 1,000 ML IVC SCH (05:31)
[2020-04-11] MEDS ORDERED: Venlafaxine XR (24 HR) 150 MG CAP.ER.24H PO SCH (09:00)
[2020-04-11 10:30] VITALS: BP 112/74
[2020-04-12 11:41] LABS: Cytomegalovirus DNA (PCR) NOT DETECTED
== END 2020-04-11 14:30 | disposition home or self-care (01) | DRG 866 ==
LOC: 3ANU → SUATTDRO 02:24 → CDU 02:38 → 3ANU 03:47
PROVIDERS: ADMIT Student in an Organized Health Care Education/Training Program; ATTEND Internal Medicine